=== PATIENT | female | born 1975 | race Caucasian/White ===

== ENCOUNTER 2018-01-27 10:17 | Inpatient (IN) | payer BC, OTHER ==
[~2018-01-27] VITALS: Ht 162.6 cm; Wt 64.4 kg
[2018-01-27] VITALS (43 sets, daily range): BP systolic 32–105; BP diastolic 22–72
[2018-01-27] MEDS ORDERED: PANTOPRAZOLE 40 MG 10ML VIAL IV STA (10:35)
[2018-01-27] MEDS ORDERED: SODIUM CHLORIDE 0.9% 1000ML 1,000 ML IV STA ×2 (10:35→11:38)
[2018-01-27 11:31] LABS: BASOPHILS % 0.5 % (0.0-1.0); HEMATOCRIT 40.2 % (34.2-44.1); HEMOGLOBIN 12.6 g/dL (12.0-16.0); LYMPHOCYTES # (AUTO) 1.1 (1.0-3.2); LYMPHOCYTES % 54.3 % (18.0-39.1); MEAN CORPUSCULAR HEMOGLOBIN 34.8 pg (28-32); MEAN CORPUSCULAR HGB CONC 31.3 g/dL (31-35); NEUTROPHILS # (AUTO) 0.9 (2.1-6.9); NEUTROPHILS % 43.7 % (38.7-80.0); PLATELET COUNT 193 x10e3/uL (140-360); RED BLOOD COUNT 3.62 x10e6/uL (3.6-5.1); RED CELL DISTRIBUTION WIDTH 16.5 % (11.7-14.4)
[2018-01-27 11:37] LABS: ABG HCO3 16 mmol/L (23-28); ABG PCO2 21 mmHg (41-51); ABG PH 7.48 (7.31-7.41); ABG PO2 128 mmHg (80-105)
[2018-01-27] MEDS ORDERED: CEFEPIME HCL 2 GM VIAL IV STA (11:38)
[2018-01-27 11:41] LABS: AMPHETAMINES SCREEN,URINE NEGATIVE (NEGATIVE); PHENCYCLIDINE SCREEN,URINE NEGATIVE (NEGATIVE)
[2018-01-27 11:42] LABS: BENZODIAZEPINES SCREEN,URINE NEGATIVE (NEGATIVE)
[2018-01-27 11:44] LABS: CLARITY,URINE HAZY (CLEAR); COLOR,URINE YELLOW (YELLOW); LEUKOCYTE ESTERASE ,URINE NEGATIVE (NEGATIVE); PREGNANCY TEST, URINE NEGATIVE (NEGATIVE)
[2018-01-27 11:45] LABS: BILIRUBIN,URINE NEGATIVE (NEGATIVE); KETONES,URINE NEGATIVE (NEGATIVE); NITRITE,URINE POSITIVE (NEGATIVE); PROTEIN,URINE DIPSTICK NEGATIVE (NEGATIVE); URINE UROBILINOGEN 1 mg/dL (0.2 - 1)
[2018-01-27] MEDS ORDERED: VANCOMYCIN 1GM/NS 250 ML 250 ML IV ONE (11:45)
[2018-01-27 11:46] LABS: RBC,URINE 0-5 /HPF (0-5)
[2018-01-27] MEDS ORDERED: MAXALT MLT10 MG PO (11:46)
[2018-01-27] MEDS ORDERED: OXYCODONE-ACET1 EAC3 PO (11:46)
[2018-01-27] MEDS ORDERED: CYANOCOBALAMIN (11:46)
[2018-01-27 11:47] LABS: BACTERIA,URINE MANY /HPF; EPITHELIAL CELLS,URINE FEW /LPF; MUCUS,URINE FEW (RARE)
[2018-01-27 11:53] LABS: ACETAMINOPHEN < 3 ug/mL (10-30); ALANINE AMINOTRANSFERASE 71 IU/L (0-55); ALBUMIN 1.4 g/dL (3.5-5.0); ALBUMIN/GLOBULIN RATIO 0.4 (0.8-2.0); ALKALINE PHOSPHATASE 159 IU/L (40-150); ANION GAP 33.3 mmol/L (8-16); BLOOD UREA NITROGEN 6 mg/dL (7-26); BUN/CREATININE RATIO 10 (6-25); CALCIUM 7.6 mg/dL (8.4-10.2); CARBON DIOXIDE 15 mmol/L (22-29); CHLORIDE 96 mmol/L (98-107); CREATINE KINASE 102 IU/L (29-168); CREATININE, SERUM 0.62 mg/dL (0.57-1.11); EST GLOMERULAR FILTRATION RATE > 60 ML/MIN (60-); GLUCOSE 93 mg/dL (74-118); MAGNESIUM 1.5 MG/DL (1.3-2.1); POTASSIUM 4.3 mmol/L (3.5-5.1); SALICYLATE < 5.0 mg/dL (0-30); SODIUM 140 mmol/L (136-145)
[2018-01-27 11:57] LABS: ANISOCYTOSIS SLIGHT; EOSINOPHILS % (MANUAL) 1 % (0-7); LYMPHOCYTES % (MANUAL) 50 % (19-48); MONOCYTES % (MANUAL) 11 % (3.4-9.0); NEUTROPHILS % (MANUAL) 35 % (40-74); PLATELET ESTIMATE ADEQUATE; PLATELET MORPHOLOGY COMMENT NORMAL
--- NOTE | 2018-01-27 12:03 | Diagnostic Imaging Report ---
Examination: CT BRAIN WITHOUT CONTRAST History:Fall. Confusion. Altered mental status. Comparison studies:None Technique: Axial images were obtained from the skull base to the vertex. Coronal and sagittal images reconstructed from the axial data. Dose modulation, iterative reconstruction, and/or weight based adjustment of the mA/kV was utilized to reduce the radiation dose to as low as reasonably achievable. Intravenous contrast: None Findings: Scalp: No abnormalities. Bones: No fractures, blastic or lytic lesions. Brain sulci: Appropriate for age. Ventricles: Normal in size and configuration. No hydrocephalus. Extra-axial space: No abnormalities. Parenchyma: No abnormal densities. No masses, hemorrhage, or acute or chronic cortical based vascular insults.. Sellar/suprasellar region: No abnormalities. Craniocervical junction: Patent foramen magnum. No Chiari one malformation. Incidental findings: None. Impression: No intracranial abnormalities. Signed by: Dr. Cher Corona M.D. on 01/27/2018 11:58 AM
--- NOTE | 2018-01-27 12:05 | Diagnostic Imaging Report ---
Examination: CT CERVICAL SPINE WITHOUT CONTRAST HISTORY:Fall. Neck injury. COMPARISON:The images are prior cervical spine MRI performed in 2010. TECHNIQUE: Multidetector helical axial images were obtained without contrast from the foramen magnum to T1. Coronal and sagittal reformatted images were done. Bone and soft tissue windows were evaluated. Dose modulation, iterative reconstruction, and/or weight based adjustment of the mA/kV was utilized to reduce the radiation dose to as low as reasonably achievable. FINDINGS: Alignment:Normal alignment and lordosis. Vertebrae: Normal height and density. No acute fracture, infection or neoplasm. Disc space heights: Normal height. Caliber of spinal canal: Developmentally normal. Posterior fossa and craniocervical junction: Foramen magnum patent. No Chiari 1 malformation. Soft tissues: No abnormality. Degenerative changes: No disc bulge/ herniation or foraminal or canal stenosis. Additional findings: An epidural catheter is identified in the posterior midline with distal tip at the C3-C4 level. IMPRESSION: 1. No acute abnormality. 2. An epidural catheter is identified in the posterior midline with distal tip at the C3-C4 level. Signed by: Dr. Cher Corona M.D. on 01/27/2018 12:01 PM
[2018-01-27 12:07] LABS: INR 1.37; PROTHROMBIN TIME 15.9 seconds (11.9-14.5)
[2018-01-27 12:08] LABS: PARTIAL THROMBOPLASTIN TIME 36.3 seconds (23.8-35.5)
--- NOTE | 2018-01-27 12:08 | Diagnostic Imaging Report ---
EXAMINATION: CHEST SINGLE (PORTABLE) INDICATION: \S\AMS, ? RIGHT BREAST MASS COMPARISON: None FINDINGS: AP view TUBES and LINES: None. LUNGS: Lungs are well inflated. Lungs are clear. There is no evidence of pneumonia or pulmonary edema. PLEURA: No pleural effusion or pneumothorax. HEART AND MEDIASTINUM: The cardiomediastinal silhouette is unremarkable. BONES AND SOFT TISSUES: Partially visualized spinal stimulator wires with one stimulator component at at T7 level and the second lead is partially visualized with the inferior component at C7 with the proximal tip not well-visualized but presumptively at C5-C6 level. No acute osseous lesion. Soft tissues are unremarkable. UPPER ABDOMEN: No free air under the diaphragm. IMPRESSION: No acute thoracic abnormality. Signed by: Dr. Martin Kelley M.D. on 01/27/2018 12:05 PM
--- NOTE | 2018-01-27 12:10 | Diagnostic Imaging Report ---
PELVIS AP 1-2 VIEWS - 1 views HISTORY: Pain. Fall. COMPARISON: None available. FINDINGS: Bones: No acute displaced fracture. Osseous alignment is within normal limits. Joints: Mild degenerative changes in the lower lumbar spine and bilateral SI joints. Soft tissues: The soft tissues appear unremarkable. Generator component of the spinal stimulator overlies the left side. IMPRESSION: No acute radiographic abnormality. Signed by: Dr. Martin Kelley M.D. on 01/27/2018 12:06 PM
[2018-01-27 12:13] LABS: THYROID STIMULATING HORMONE 1.905 uIU/mL (0.350-4.940)
[2018-01-27] MEDS ORDERED: ONDANSETRON HCL INJ 2 MG/ML VIAL IV PRN (13:00)
[2018-01-27] MEDS ORDERED: MORPHINE SULFATE INJ 4 MG/ML INJ IV PRN (13:00)
[2018-01-27] MEDS: CEFEPIME HCL 2 GM VIAL IV SCH ×2 (13:22→22:36)
[2018-01-27] MEDS ORDERED: SODIUM CHLORIDE 0.9% 1000ML 1,000 ML ONE ×2 (13:24→14:29)
[2018-01-27] MEDS ORDERED: SODIUM CHLORIDE 0.9% 1000ML 1,000 ML IV ONE (13:30)
[2018-01-27] MEDS ORDERED: ETOMIDATE 2 MG/ML 10 ML INJ IV STA (13:43)
[2018-01-27] MEDS ORDERED: SUCCINYLCHOLINE CHLORIDE 20 MG/ML 10ML VIAL IV STA (13:44)
[2018-01-27] MEDS ORDERED: ROCURONIUM BROMIDE 1 ML ONE (14:04)
[2018-01-27] MEDS ORDERED: ROCURONIUM BROMIDE 10 MG/ML 5ML VIAL IV ONE ×2 (14:05→14:30)
[2018-01-27] MEDS ORDERED: ACETAMINOPHEN 325 MG TAB PO PRN (14:15)
[2018-01-27] MEDS ORDERED: SENNOSIDES 8.6 MG TAB PO PRN (14:15)
[2018-01-27] MEDS: SODIUM CHLORIDE 0.9% 1000ML 1,000 ML IV SCH ×2 (14:33→19:15)
[2018-01-27 14:40] LABS: CHOLESTEROL 91 MD/DL (0-199); TRIGLYCERIDES 131 MG/DL (0-149)
[2018-01-27 14:42] LABS: HDL CHOLESTEROL < 5 MG/DL (40-60); LDL CHOLESTEROL 60 MG/DL (60-130)
[2018-01-27] MEDS ORDERED: PROPOFOL IV EMULSION 10 MG/ML 50 ML VIAL IV PRN (14:45)
[2018-01-27] MEDS ORDERED: PROPOFOL IV EMULSION 10MG/ML 100 ML IV PRN (15:00)
--- NOTE | 2018-01-27 15:39 | Diagnostic Imaging Report ---
EXAMINATION: CHEST SINGLE (PORTABLE) INDICATION: \S\s/p intubation and right SC central attempted/unsuccessful COMPARISON: Chest x-ray 01/27/2018. FINDINGS: AP view TUBES and LINES: * Endotracheal tube tip is 4.4 cm above the kelli. * Nasogastric tube courses below the diaphragm. However, the side-port is 4.9 cm above the diaphragm. * Partially visualized 2 spinal stimulator wires one ending in the mid thorax and one in the cervical spine. LUNGS: Lungs are well inflated. Perihilar atelectasis. There is no evidence of pneumonia or pulmonary edema. PLEURA: No pleural effusion or pneumothorax. HEART AND MEDIASTINUM: The cardiomediastinal silhouette is unremarkable. BONES AND SOFT TISSUES: No acute osseous lesion. Soft tissues are unremarkable. UPPER ABDOMEN: No free air under the diaphragm. IMPRESSION: 1. Endotracheal tube is in good position.. 2. NG tube needs to be advanced by at least another 5 cm. 3. No pneumothorax. Signed by: Dr. Martin Kelley M.D. on 01/27/2018 3:36 PM
--- NOTE | 2018-01-27 15:56 | Diagnostic Imaging Report ---
EXAM: CT Abdomen and Pelvis WITH contrast INDICATION: \S\sepsis, h/o gastric bypass COMPARISON: None. TECHNIQUE: Abdomen and pelvis were scanned utilizing a multidetector helical scanner from the lung base to the pubic symphysis after administration of IV contrast. Coronal and sagittal reformations were obtained. Routine protocol was performed. Scan was performed when during portal venous phase. IV CONTRAST: 100 mL of Isovue 370 ORAL CONTRAST: Water COMPLICATIONS: None RADIATION DOSE: Total DLP: 312.97 mGy*cm Estimated effective dose: (DLP x 0.015 x size factor) mSv CTDIvol has been reviewed. It is below the limits set by the Radiation Protocol Committee (RPC). FINDINGS: LINES and TUBES: Tip of the NG tube terminates at the gastric pouch LOWER THORAX: Mild dependent groundglass opacities in both lower lobes, likely atelectasis. There is however a more well-defined 1.4 x 1.5 cm pleural base consolidation with peripheral groundglass opacity in the lateral right lower lobe (series 2 image 10). HEPATOBILIARY: Severe diffuse hepatic steatosis. Wedge-shaped focal fatty sparing in the right hepatic lobe. 2.1 cm mild area of enhancement in the right hepatic dome, also likely focal fatty sparing. No focal hepatic lesions. No biliary ductal dilation. GALLBLADDER: There are cholecystectomy clips. SPLEEN: No splenomegaly. PANCREAS: No focal masses or ductal dilatation. ADRENALS: No adrenal nodules KIDNEYS/URETERS: Kidneys enhance symmetrically. No hydronephrosis. No cystic or solid mass lesions. No stones. GI TRACT: Diffuse small bowel and colonic wall thickening and mucosal enhancement consistent with diffuse enterocolitis. Majority of the inflammatory changes are centered in the colon. Postoperative changes of gastric bypass. Appendix is not visualized. PELVIC ORGANS/BLADDER: Unremarkable. LYMPH NODES: No lymphadenopathy. VESSELS: Unremarkable. PERITONEUM / RETROPERITONEUM: Moderate ascites. The ascites in the deep pelvis is mildly hyperdense measuring 23 Hounsfield units. BONES: Unremarkable. SOFT TISSUES: Severe anasarca. Left sided spinal stimulator device with one lead entering at T12-L1 and the other lead entering at T11-T12. IMPRESSION: 1. Findings of diffuse enterocolitis, predominantly involving the colon. 2. Diffuse anasarca with moderate ascites. The ascitic fluid is mildly hyperdense. 3. Severe diffuse hepatic steatosis with focal area of fatty sparing. 4. Postop changes of gastric bypass surgery with the tip of the NG tube in the gastric pouch. 5. Dependent atelectasis. There is however a 1.5 cm more focal opacity in the right lower lobe. This may represent infection, atelectasis, or a resolving pulmonary infarct. Signed by: Dr. Martin Kelley M.D. on 01/27/2018 3:52 PM
[2018-01-27] MEDS: LACTULOSE SYRUP 20 GM/30 ML UDC PO SCH ×2 (16:05→18:00)
[2018-01-27] MEDS ORDERED: FAMOTIDINE 20 MG TAB PO SCH (16:30)
--- NOTE | 2018-01-27 17:03 | Consultation ---
DATE OF CONSULTATION: January 27, 2018 PULMONARY CRITICAL CARE CONSULTATION CONSULTING PHYSICIAN: Dr. Keith Barrera. CHIEF COMPLAINT: Patient was brought into the emergency room by the with altered mental status. HPI: Ms. Ramsey is a 42-year-old female. Currently, she is moaning, breathing 30 times a minute, and Dr. Nielson is about to intubate the patient. Patient came in with altered mental status. She has a history of gastric bypass surgery per the chart and is severely emaciated with weight loss. She is around 80 to 100 pounds. She is severely malnourished with generalized anasarca. Her ammonia level in the emergency room was 194 with a lactic acid of 42.2. She has been started on lactulose. She is unable to give me any history because of her mental status. REVIEW OF SYSTEMS: Unable to elicit a detailed review of systems because of the patient's mental status. PAST MEDICAL HISTORY: History of gastric bypass surgery, malnutrition, generalized weakness and debility, anemia. FAMILY AND SOCIAL HISTORY: She lives with her . She does not smoke, does not drink. PHYSICAL EXAMINATION VITAL SIGNS: Temperature 99, pulse of 105, blood pressure 99/66. GENERAL APPEARANCE: She appears much older than the stated age of 42. She is cachectic, weak. SKIN: She has a redness and peau d'orange appearance on the right breast and probably a mass in the right breast as well. HEENT: Head atraumatic, normocephalic. She is opening her eyes on sternal rub, but not responding much. NECK: Supple. CHEST: Clear to auscultation. No wheezing. No crackles. HEART: S1, S2 audible. Tachycardic. ABDOMEN: Soft. EXTREMITIES: Bilateral pedal edema up until the upper thighs. NEUROLOGIC: She is moaning, not responding to any questions, opening her eyes on sternal rub. DIAGNOSTIC AND LABORATORY DATA: Chest x-ray, I have reviewed the images, not showing any evidence of pneumonia. She has spinal stimulator wires with one stimulator component at T7 level. Brain CT was done in the emergency room, which is showing no intracranial abnormalities. Ammonia 194. Lactic acid of 42.2. ASSESSMENT/PLAN: Ms. Ramsey is a 42-year-old female, presented with altered mental status and encephalopathy. CURRENT PROBLEMS 1. Severe malnutrition, generalized anasarca, history of gastric bypass surgery. 2. Hepatic encephalopathy, lactulose has been started. 3. Severe encephalopathy and patient appears to be tachycardic and tachypneic, unable to protect the airway. Her blood gas, which was done on the room air, shows a pH of 7.48, pCO2 of 21, and pO2 of 128, which signifies metabolic acidosis with respiratory compensation with mild respiratory alkalosis as well. Once the ventilator support is started, we will review the settings. 4. Anemia with high MCV, possibility of folate and iron deficiency due to gastric bypass surgery. Stool for occult blood is positive. Recommend GI evaluation as well. 5. Abnormal liver function test and high ammonia level with no clear-cut source of sepsis. I will do a CT scan of the abdomen and pelvis once the patient is intubated and stabilized. 6. Generalized anasarca with malnutrition. Patient will benefit from dietary evaluation. 7. Broad-spectrum antibiotic coverage will be started with vancomycin and cefepime, one dose has been given in the emergency room. We will follow the blood cultures. At this point, the source of the sepsis is not very clear. Critical care time spent 50 minutes. Job#: [id number] LPA
[2018-01-27] MEDS ORDERED: FENTANYL CITRATE INJ 2,000 MCG in SODIUM CHLORIDE 0.9% 250ML 210 ML IV PRN (17:30)
[2018-01-27] MEDS ORDERED: NOREPINEPHRINE 8 MG/D5W 250 ML 250 ML ONE (17:34)
[2018-01-27 17:38] LABS: ABG HCO3 14 mmol/L (23-28); ABG PCO2 28 mmHg (41-51); ABG PH 7.32 (7.31-7.41); ABG PO2 461 mmHg (80-105)
[2018-01-27] MEDS ORDERED: DURAGESIC1 EAC1 (17:40)
[2018-01-27] MEDS ORDERED: LYRICA75 MG (17:40)
[2018-01-27] MEDS ORDERED: SODIUM CHLORIDE 0.9% 50ML 50 ML ONE (18:03)
[2018-01-27] MEDS ORDERED: IOPAMIDOL 370 MG/ML 200 ML INFUS..BTL INJ ONE (18:04)
--- NOTE | 2018-01-27 18:36 | Diagnostic Imaging Report ---
EXAMINATION: CHEST XRAY LINE PLACEMENT INDICATION: \S\LINE PLACEMENT COMPARISON: Chest x-ray 01/27/2018 at 1512 FINDINGS: AP view TUBES and LINES: The right PICC line with tip at low SVC. Endotracheal tube and nasogastric tubes are in good position. Spinal stimulator wires remain unchanged. LUNGS: Lungs are well inflated. Lungs are clear. There is no evidence of pneumonia or pulmonary edema. PLEURA: No pleural effusion or pneumothorax. HEART AND MEDIASTINUM: The cardiomediastinal silhouette is unremarkable. BONES AND SOFT TISSUES: No acute osseous lesion. Soft tissues are unremarkable. UPPER ABDOMEN: No free air under the diaphragm. IMPRESSION: New right PICC line with tip in low SVC. Signed by: Dr. Martin Kelley M.D. on 01/27/2018 6:32 PM
[2018-01-27] MEDS ORDERED: VASOPRESSIN 100 UNIT in DEXTROSE 5% 100ML 100 ML IV PRN (19:00)
[2018-01-27 19:38] LABS: CREATINE KINASE MB 2.8 ng/mL (0-5.0)
[2018-01-27 19:51] LABS: FOLATE 6.5 ng/mL (7.0-15.4)
--- NOTE | 2018-01-27 21:01 | History and Physical ---
PRIMARY CARE PHYSICIAN: Dr. Mei. CHIEF COMPLAINT: Confusion and reduce responsiveness. HISTORY OF PRESENT ILLNESS: All the history has been obtained from at bedside. 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 She lost about 50 pounds in a month. Now, patient developing lethargy and confusion and difficulty in ambulating, brought to the hospital here, found to be in poor condition, severely malnourished. NG tube was placed due to hyperammonemia, requiring lactulose, but patient seemed to decompensate and required intubation. Now, she is in the ICU for management. PAST MEDICAL HISTORY: Cigarette use; rapid weight loss in September following hernia repair, about 50-pound weight loss; degenerative joint disease; chronic pain disorder; chronic diarrhea; hepatomegaly. PAST SURGICAL HISTORY: Hernia repair, gastric bypass 12 years ago, spinal cord stimulator. ALLERGIES: PER ELECTRONIC MEDICAL RECORD. FAMILY/SOCIAL HISTORY: Patient is . She smokes 1 pack of cigarettes per day. Alcohol intake is unknown. MEDICATIONS: Per electronic medical record. REVIEW OF SYSTEMS: Unobtainable. PHYSICAL EXAMINATION VITAL SIGNS: Have been reviewed. GENERAL APPEARANCE: A cachectic-appearing woman with bitemporal wasting. HEENT: Anicteric. She has ET tube in place. CARDIOVASCULAR: Normal S1 and S2. LUNGS: She has bilateral breath sounds. ABDOMEN: Soft. She has midline surgical scar. EXTREMITIES: She has trace to 1+ leg edema. SKIN: She has erythematous rash on the right breast. No induration. No fluctuance. No skin breakdown. NEUROLOGICAL: Not interactive. PSYCHIATRIC: Unable to assess. LABS: Reviewed. MEDICATIONS: Reviewed. ASSESSMENT: This is a 42-year-old woman 1. Sepsis. 2. Leukopenia. 3. Acute respiratory failure. 4. Dehydration. 5. Metabolic acidosis. 6. Acute versus chronic transaminitis. 7. Hyperammonemia. 8. Urinary tract infection. 9. Foreign body in the spinal cervical region. 10. Underweight state. 11. Protein-calorie malnutrition with cachexia. 12. Physical deconditioning. 13. Acute hepatic encephalopathy. 14. Right breast rash. PLAN 1. Continue vent support. 2. Pulmonary consultation. 3. GI consultation. 4. We will need nutritional support. We will consult sawmilling operator. 5. Antibiotics for signs of sepsis and urinary tract infection. 6. Blood culture and urine culture. 7. Acute hepatitis panel. 8. Lactulose for hyperammonemia. Recheck ammonia level in the morning. 9. Unclear etiology of the right breast rash. We will consult infectious disease to assist in management. 10. Use SCD. 11. Monitor closely in the ICU. Critical care time more than 35 minutes. Job#: [id number] LPA
[2018-01-27] MEDS ORDERED: HYDROCORTISONE SOD SUCCINATE 100 MG VIAL IV SCH (22:00)
[2018-01-27] MEDS ORDERED: ALBUMIN 25% 25GM 0.25 GM/ML BTL IV ONE (22:00)
[2018-01-27] MEDS ORDERED: SODIUM CHLORIDE 0.9% 1000ML 1,000 ML IV PRN (22:00)
[2018-01-27] MEDS ORDERED: HYDROCORTISONE SOD SUCCINATE 100 MG VIAL ONE (22:02)
[2018-01-27] MEDS ORDERED: ALBUMIN 25% 12.5GM 100 ML IV ONE (22:03)
[2018-01-27] MEDS: HYDROCORTISONE SOD SUCCINATE 100 MG VIAL IV SCH (22:13)
[2018-01-27] MEDS ORDERED: PHENYLEPHRINE IV SCH (22:14)
[2018-01-27] MEDS ORDERED: DEXTROSE 5% IV SCH (22:14)
[2018-01-27] MEDS ORDERED: PHENYLEPHRINE HCL 1% 10 MG/ML VIAL ONE (22:21)
[2018-01-27] MEDS ORDERED: DEXTROSE 5% 250ML 250 ML IV ONE (22:21)
[2018-01-27] MEDS: PHENYLEPHRINE 10MG/ML VIAL 40 MG in DEXTROSE 5% 250ML 246 ML IV SCH (22:47)
[2018-01-27] MEDS: NOREPINEPHRINE 8 MG/D5W 250 ML 250 ML IV PRN (22:55)
[2018-01-27] MEDS ORDERED: SODIUM BICARBONATE 8.4% INJ 50 ML SYR IV STA (23:43)
[2018-01-27] MEDS ORDERED: DEXTROSE 5% 1,000 ML IV ONE (23:45)
[2018-01-27] MEDS ORDERED: SODIUM BICARBONATE 8.4% ONE (23:45)
[2018-01-27] MEDS ORDERED: SODIUM BICARBONATE 8.4% SYRING 150 ML in DEXTROSE 5% 1,000 ML IV SCH (23:45)
[2018-01-27 23:48] LABS: ABG HCO3 11 mmol/L (23-28); ABG PCO2 24 mmHg (41-51); ABG PH 7.27 (7.31-7.41); ABG PO2 222 mmHg (80-105)
[2018-01-27] MEDS ORDERED: VANCOMYCIN 1GM/NS 250 ML 250 ML IV SCH (23:55)
[2018-01-28] VITALS (19 sets, daily range): BP systolic 54–118; BP diastolic 31–89
[2018-01-28] MEDS ORDERED: ZOFRAN ODT4 MG PO (01:35)
[2018-01-28] MEDS ORDERED: MARINOL2.5 MG PO (01:35)
[2018-01-28] MEDS: NOREPINEPHRINE 8 MG/D5W 250 ML 250 ML IV PRN (03:40)
[2018-01-28] MEDS: LACTULOSE SYRUP 20 GM/30 ML UDC PO SCH ×2 (04:33)
[2018-01-28] MEDS ORDERED: PHENYLEPHRINE HCL 1% 10 MG/ML VIAL ONE ×2 (04:45→04:48)
[2018-01-28] MEDS: PHENYLEPHRINE 10MG/ML VIAL 40 MG in DEXTROSE 5% 250ML 246 ML IV SCH (04:50)
[2018-01-28] MEDS ORDERED: DEXTROSE 5% 250ML 250 ML IV ONE (04:50)
[2018-01-28 04:54] LABS: BASOPHILS % 0.3 % (0.0-1.0); EOSINOPHILS % 0.8 % (0.0-6.0); HEMATOCRIT 26.8 % (34.2-44.1); LYMPHOCYTES # (AUTO) 0.7 (1.0-3.2); MEAN CORPUSCULAR HEMOGLOBIN 34.8 pg (28-32); MEAN CORPUSCULAR HGB CONC 29.9 g/dL (31-35); MEAN CORPUSCULAR VOLUME 116.5 fL (81-99); MONOCYTES # (AUTO) 0.1 (0.2-0.8); MONOCYTES % 2.5 % (4.4-11.3); NEUTROPHILS # (AUTO) 2.8 (2.1-6.9); PLATELET COUNT 115 x10e3/uL (140-360); RED CELL DISTRIBUTION WIDTH 16.7 % (11.7-14.4)
[2018-01-28 05:22] LABS: CREATINE KINASE MB 3.5 ng/mL (0-5.0)
[2018-01-28] MEDS: HYDROCORTISONE SOD SUCCINATE 100 MG VIAL IV SCH (05:29)
[2018-01-28] MEDS: CEFEPIME HCL 2 GM VIAL IV SCH (05:29)
[2018-01-28 05:37] LABS: ALANINE AMINOTRANSFERASE 38 IU/L (0-55); ALBUMIN 1.1 g/dL (3.5-5.0); ALBUMIN/GLOBULIN RATIO 0.6 (0.8-2.0); ALKALINE PHOSPHATASE 67 IU/L (40-150); BLOOD UREA NITROGEN 6 mg/dL (7-26); BUN/CREATININE RATIO 9 (6-25); CARBON DIOXIDE 12 mmol/L (22-29); CHLORIDE 98 mmol/L (98-107); CHOLESTEROL 49 MD/DL (0-199); CREATININE, SERUM 0.66 mg/dL (0.57-1.11); EST GLOMERULAR FILTRATION RATE > 60 ML/MIN (60-); GLUCOSE 146 mg/dL (74-118); MAGNESIUM 1.5 MG/DL (1.3-2.1); SODIUM 135 mmol/L (136-145); TRIGLYCERIDES 94 MG/DL (0-149)
[2018-01-28 05:44] LABS: CALCIUM 5.9 mg/dL (8.4-10.2)
[2018-01-28 05:45] LABS: HDL CHOLESTEROL < 5 MG/DL (40-60); LDL CHOLESTEROL 25 MG/DL (60-130)
[2018-01-28] MEDS ORDERED: EPINEPHRINE HCL INJ 1 MG/ML AMP ONE (08:30)
[2018-01-28] MEDS ORDERED: ETOMIDATE 40 MG/ 20ML VIAL IV ONE (08:35)
[2018-01-28] MEDS ORDERED: SUCCINYLCHOLINE CHLORIDE 20 MG/ML 10ML VIAL ONE (08:35)
[2018-01-28] MEDS ORDERED: MULTIVITAMINS/MINERALS TAB PO SCH (09:00)
[2018-01-28] MEDS ORDERED: THIAMINE HCL INJ 100 MG in SODIUM CHLORIDE 0.9% 50ML 50 ML IV SCH (09:00)
[2018-01-28] MEDS ORDERED: THIAMINE HCL INJ 100 MG/ML 2ML VIAL IV SCH (09:00)
[2018-01-28 09:23] LABS: BAND NEUTROPHILS % (MANUAL) 47 %; LYMPHOCYTES % (MANUAL) 25 % (19-48); MONOCYTES % (MANUAL) 11 % (3.4-9.0); NEUTROPHILS % (MANUAL) 17 % (40-74); PLATELET ESTIMATE ADEQUATE; PLATELET MORPHOLOGY COMMENT NORMAL; RBC MORPHOLOGY COMMENT NORMAL
--- OUTSIDE RECORDS SUMMARY | 2018-02-15 08:15 | XMS REPORT | Clinical Summary ---
Author Author [facility] Address Unknown Phone Unavailable Care Team Providers Care Manager Of Business Operations Name Role Phone PCP Unavailable Allergies No Known Allergies Current Medications Prescription Sig. Disp. Refills Start End Date Status Date fentaNYL (DURAGESIC) 25 Place 1 patch onto the Active mcg/hr patch skin every third day. pregabalin (LYRICA) 100 Take 100 mg by mouth 3 Active MG capsule (three) times daily. tiZANidine (ZANAFLEX) 4 Take 4 mg by mouth every Active MG tablet 6 (six) hours as needed. oxyCODONE-acetaminophen Take 1 tablet by mouth Active (PERCOCET) 10-325 mg per every 4 (four) hours as tablet needed for Pain. triamterene-hydroCHLOROth Take 1 capsule by mouth Active iazide (DYAZIDE) 37.5-25 every morning. mg per capsule rizatriptan (MAXALT) 10 Take 10 mg by mouth once Active MG tablet as needed for Headaches Do NOT exceed thirty (30) mg in 24 hours. . diclofenac potassium Take 1 packet by mouth Active (CAMBIA) 50 mg PwPk daily as needed (migraine). doxepin (SINEQUAN) 25 MG Take 25 mg by mouth every Active capsule night as needed (insomnia). cyanocobalamin (VITAMIN Inject 1,000 mcg Active B-12) 1,000 mcg/mL intramuscularly as injection directed 2x a month . multivitamin per tablet Take 1 tablet by mouth Active daily. Active Problems Problem Noted Date Lumbar radiculopathy 06/14/2017 Encounters Date Type Specialty Care Team Description 06/14/2017 Hospital Ramón Paulino MD Encounter 06/14/2017 Procedure Pass 06/14/2017 Surgery Ramón Paulino MD INSERTION,SPINAL CORD NEUROSTIMULATOR 06/13/2017 Anesthesia Roxane Lieberman MD Event after 01/26/2017 Social History Tobacco Use Types Packs/Day Years Used Date Current Every Day Smoker 0.5 Smokeless Tobacco: Never Used Tobacco Cessation: Ready to Quit: Yes Alcohol Use Drinks/Week oz/Week Comments No Sex Assigned at Date Recorded Not on file Last Filed Vital Signs Vital Sign Reading Time Taken Blood Pressure 94/53 06/14/2017 1:20 PM [employer] Pulse 61 06/14/2017 1:20 PM [employer] Temperature 36.4 C (97.6 F) 06/14/2017 1:20 PM [employer] Respiratory Rate 8 06/14/2017 1:20 PM [employer] Oxygen Saturation 100% 06/14/2017 1:20 PM [employer] Inhaled Oxygen - - Concentration Weight - - Height - - Body Mass Index - - Plan of Treatment Not on file Implants Implanted Type Area Cut Filer Device Expiration Model / Identifier Date Serial / Lot Lwire Set Paddle Octrode 60 - Pain N/A: Back ST TESS 09/07/2018 3186 / [id number] Mgmt/Stimu MED:NEUROMODULA [id number] / Implanted: Qty: 1 on 06/14/2017 by Ramón Lynch MD Lwire Set Paddle Octrode 60 - Pain N/A: Back ST TESS 04/03/2019 3186 / [id number] Mgmt/Stimu MED:NEUROMODULA [id number] / Implanted: Qty: 1 on 06/14/2017 by Ramón Lynch MD Stim Neuro [employer] 5 Elite - Pain N/A: Back ST TESS 01/23/2019 3660 / [id number] Mgmt/Stimu MED:NEUROMODULA [id number] / Implanted: Qty: 1 on 06/14/2017 by Ramón Lynch MD Francis Lauren [place] 1192 - [id number] Spine ADV 05/26/2019 1192 / Implanted: Qty: 2 on 06/14/2017 by OBDULIA / Ramón Paulino MD SYS [id number] Procedures Procedure Name Priority Date/Time Associated Diagnosis Comments INSERTION,SPINAL CORD 06/14/2017 Chronic nonmalignant pain NEUROSTIMULATOR 11:15 AM [employer] Case Notes PERMANENT LUMBAR SCS KHOURY PADMINI VILLALTA , SENTRY after 01/26/2017 Results * FL Supervisor Fleshing in OR 30 minute increments (06/14/2017 11:26 AM) Specimen Performing Laboratory GE RIS Narrative FLUOROSCOPIC UNIT UTILIZED.NO INTERPRETATION REQUESTED. Procedure Note Interface, External Ris In - 06/14/2017 1:53 PM [employer] FLUOROSCOPIC UNIT UTILIZED. NO INTERPRETATION REQUESTED. * Screen, urine (06/14/2017 10:28 AM) Component Value Ref Range Preg Test, Ur Negative Specimen Performing Laboratory Urine [facility] [address] [place] [address] after 01/26/2017
--- NOTE | 2018-02-26 15:12 | Discharge Summary ---
SUMMARY CAUSE OF : 1. Sepsis with Enterobacter and Klebsiella urinary tract infections as well as Klebsiella bacteremia. 2. Acute respiratory failure. For further details of hospitalization, please refer to my H\T\P. NAZIA CLARKE MD Job#: [id number] [facility]
--- OUTSIDE RECORDS SUMMARY | 2018-02-27 03:02 | XMS REPORT | CCD ---
Author Author Auto Generated Organization [facility] Outpatient Imaging [facility] Address Unknown Phone Unavailable Care Team Providers Care Taper Printed Circuit Layout Name Role Phone Stanford Mei CP Allergies, Adverse Reactions, Alerts Substance Reaction Status NKDA Active NKFA Active Problem List Condition Effective Dates Status Fibromyalgia Resolved Obesity Resolved
--- OUTSIDE RECORDS SUMMARY | 2018-02-27 03:02 | XMS REPORT | Summary of Care ---
Author Author [facility] Outpatient Imaging [facility] Outpatient Imaging [facility] Address Unknown Phone Unavailable Encounter HQ Encntr_alias(FIN) [id number] Date(s): 04/21/17 - 04/21/17 [facility] Outpatient Imaging [facility] [address] [place], [place] [address]- [place] Discharge Disposition: Home or Self Care Attending Physician: Stanford Mei MD Vital Signs No data available for this section Problem List Condition Effective Dates Status Health Status Informant Fibromyalgia(Confirm Resolved ed) Obesity(Confirmed) Resolved Allergies, Adverse Reactions, Alerts Substance Reaction Severity Status NKFA Active NKDA Active Medications No data available for this section Results No data available for this section Immunizations No data available for this section Procedures Procedure Date Related Diagnosis Body Site Tonsillectomy 1978 Cholecystectomy Epidural steroid injection Gastric bypass operation Social History Social History Type Response Assessment and Plan No data available for this section
--- OUTSIDE RECORDS SUMMARY | 2018-02-27 03:02 | XMS REPORT | Summary of Care ---
Author Author [facility] Outpatient Imaging [facility] Outpatient Imaging [facility] Address Unknown Phone Unavailable Encounter HQ Encntr_alias(FIN) [id number] Date(s): 08/03/16 - 08/03/16 [facility] Outpatient Imaging [facility] [address] [place], [place] [address]- Discharge Disposition: Home or Self Care Attending Physician: [id number] -DANYELLE ABDULLAHI Vital Signs No data available for this section Problem List Condition Effective Dates Status Health Status Informant Fibromyalgia(Confirm Resolved ed) Obesity(Confirmed) Resolved Allergies, Adverse Reactions, Alerts Substance Reaction Severity Status NKDA Active NKFA Active Medications No data available for this section Results No data available for this section Immunizations No data available for this section Procedures Procedure Date Related Diagnosis Body Site Tonsillectomy 1978 Cholecystectomy Epidural steroid injection Gastric bypass operation Social History Social History Type Response Assessment and Plan No data available for this section
--- OUTSIDE RECORDS SUMMARY | 2018-02-27 03:02 | XMS REPORT | CCD ---
Author Author Auto Generated Organization [facility] Outpatient Imaging [facility] Address Unknown Phone Unavailable Care Team Providers Care Form Block Maker Name Role Phone Stanford Mei CP Allergies, Adverse Reactions, Alerts Substance Reaction Status NKDA Active NKFA Active Problem List Condition Effective Dates Status Fibromyalgia Resolved Obesity Resolved
--- OUTSIDE RECORDS SUMMARY | 2018-02-27 03:02 | XMS REPORT | CCD ---
Author Author Auto Generated Organization [facility] Outpatient Imaging [facility] Address Unknown Phone Unavailable Care Team Providers Care Floor Inspector Name Role Phone Stanford Mei CP Allergies, Adverse Reactions, Alerts Substance Reaction Status NKDA Active NKFA Active Problem List Condition Effective Dates Status Fibromyalgia Resolved Obesity Resolved
--- OUTSIDE RECORDS SUMMARY | 2018-02-27 03:02 | XMS REPORT | CCD ---
Author Author Auto Generated Organization [facility] Outpatient Imaging [facility] Address Unknown Phone Unavailable Care Team Providers Care Press Operator Helper Name Role Phone Stanford Mei CP Allergies, Adverse Reactions, Alerts Substance Reaction Status NKDA Active NKFA Active Problem List Condition Effective Dates Status Fibromyalgia Resolved Obesity Resolved
--- OUTSIDE RECORDS SUMMARY | 2018-02-27 03:02 | XMS REPORT | CCD ---
Author Author Auto Generated Organization [facility] Outpatient Imaging [facility] Address Unknown Phone Unavailable Care Team Providers Care Chipping Machine Operator Name Role Phone Stanford Mei CP Allergies, Adverse Reactions, Alerts Substance Reaction Status NKDA Active NKFA Active Problem List Condition Effective Dates Status Fibromyalgia Resolved Obesity Resolved
--- OUTSIDE RECORDS SUMMARY | 2018-02-27 03:02 | XMS REPORT | CCD ---
Author Author Auto Generated Organization [facility] Address Unknown Phone Unavailable Care Team Providers Care Powder Loader Name Role Phone Frankie De La Fuente RP Allergies, Adverse Reactions, Alerts Substance Reaction Status NKDA Active NKFA Active Problem List Condition Effective Dates Status Fibromyalgia Resolved Obesity Resolved Medications Medication Instructions Start Date End Date Status [place] 7.5/325 oral 15 mL, Route: PO, Drug Form: TAB, 06/20/2012 06/20/2012 Completed tablet Dosing Weight 92.727, kg, ONCE, Start date: 06/20/12 13:57:00, Stop date: 06/20/12 13:57:00 Zofran 4 mg, Route: IV, ONCE, Dosing 06/20/2012 06/20/2012 Completed Weight 92.727, kg, PRN Nausea, Start date: 06/20/12 11:56:00 fentanyl 25 microgram, 0.5 mL, Route: IVP, 06/20/2012 06/20/2012 Completed Drug form: INJ, Q5Min, Dosing Weight 92.727, kg, Start date: 06/20/12 11:50:00, Duration: 2 doses or times, Stop date: 06/20/12 11:55:00 fentanyl 25 microgram, 0.5 mL, Route: IVP, 06/20/2012 06/20/2012 Pending Drug form: INJ, Q5Min, Dosing Complete Weight 92.727, kg, Start date: 06/20/12 12:15:00, Duration: 2 doses or times, Stop date: 06/20/12 12:20:00 Vital Signs Most recent to oldest [Reference Range]: 1 2 3 Height 167.64 cm (06/18/2012 14:34:00) Systolic Blood Pressure [90-140 mmHg] 113 mmHg (06/20/2012 13:00:00) 107 mmHg (06/20/2012 12:00:00) 103 mmHg (06/20/2012 11:45:00) Diastolic Blood Pressure [60-90 mmHg] 52 mmHg *LOW* (06/20/2012 13:00:00) 56 mmHg *LOW* (06/20/2012 12:00:00) 51 mmHg *LOW* (06/20/2012 11:45:00) Respiratory Rate [14-20 BRMIN] 16 BRMIN (06/20/2012 13:00:00) 11 BRMIN *LOW* (06/20/2012 12:00:00) 12 BRMIN *LOW* (06/20/2012 11:45:00) Peripheral Pulse Rate [60-100 bpm] 78 bpm (06/20/2012 07:22:00) Weight 92.727 kg (06/18/2012 14:34:00) Procedures Procedures Date Related Diagnosis Cholecystectomy Epidural steroid injection Gastric bypass operation Tonsillectomy 1979
--- OUTSIDE RECORDS SUMMARY | 2018-02-27 03:02 | XMS REPORT | Summary of Care ---
Author Author [facility] Organization [facility] Address Unknown Phone Unavailable Encounter HEIDI Burton(KELLIE) [phone] Date(s): 05/04/17 - 05/04/17 [facility] [address] [place] [address]- Discharge Disposition: Home or Self Care Attending Physician: Austen Ford MD Vital Signs No data available for this section Problem List Condition Effective Dates Status Health Status Informant Fibromyalgia(Confirm Resolved ed) Obesity(Confirmed) Resolved Allergies, Adverse Reactions, Alerts Substance Reaction Severity Status NKFA Active NKDA Active Medications No data available for this section Results ELECTROLYTES Most recent to 1 oldest [Reference Range]: Sodium Lvl [135-145 141 mEq/L mEq/L] (05/04/17 11:40 AM) Potassium Lvl 5.0 mEq/L [3.5-5.1 mEq/L] (05/04/17 11:40 AM) Chloride Lvl [95-109 105 mEq/L mEq/L] (05/04/17 11:40 AM) CO2 [24-32 mEq/L] 30 mEq/L (05/04/17 11:40 AM) AGAP [10.0-20.0 11.0 mEq/L mEq/L] (05/04/17 11:40 AM) CHEM PANEL Most recent to 1 oldest [Reference Range]: Creatinine Lvl 0.50 mg/dL [0.50-1.40 mg/dL] (05/04/17 11:40 AM) eGFR 119 mL/min/1.73m2 1 *NA* (05/04/17 11:40 AM) BUN [7-22 mg/dL] 10 mg/dL (05/04/17 11:40 AM) B/C Ratio [6-25] 20 (05/04/17 11:40 AM) Glucose Lvl [70-99 89 mg/dL mg/dL] (05/04/17 11:40 AM) Total Protein 6.3 g/dL [6.4-8.4 g/dL] *LOW* (05/04/17 11:40 AM) Albumin Lvl [3.5-5.0 3.3 g/dL g/dL] *LOW* (05/04/17 11:40 AM) Globulin [2.7-4.2 3.0 g/dL g/dL] (05/04/17 11:40 AM) A/G Ratio [0.7-1.6] 1.1 (05/04/17 11:40 AM) Calcium Lvl 9.1 mg/dL [8.5-10.5 mg/dL] (05/04/17 11:40 AM) ALT [0-65 unit/L] 21 unit/L (05/04/17 11:40 AM) AST [0-37 unit/L] 21 unit/L (05/04/17 11:40 AM) Alk Phos [39-136 59 unit/L unit/L] (05/04/17 11:40 AM) Bili Total [0.2-1.3 0.2 mg/dL mg/dL] (05/04/17 11:40 AM) 1Result Comment: The eGFR is calculated using the CKD-EPI formula. In most young, healthy individuals the eGFR will be >90 mL/min/1.73m2. The eGFR declines with age. An eGFR of 60-89 may be normal in some populations, particularly the elderly, for whom the CKD-EPI formula has not been extensively validated. Use of the eGFR is not recommended in the following populations: Individuals with unstable creatinine concentrations, including patients and those with serious co-morbid conditions. Patients with extremes in muscle mass or diet. The data above are obtained from the National Kidney Disease Education Program ( NKDEP) which additionally recommends that when the eGFR is used in patients with extremes of body mass index for purposes of drug dosing, the eGFR should be mul tiplied by the estimated BMI. HEMATOLOGY Most recent to 1 oldest [Reference Range]: WBC [3.7-10.4 K/CMM] 4.0 K/CMM (05/04/17 11:40 AM) RBC [4.20-5.40 3.48 M/CMM M/CMM] *LOW* (05/04/17 11:40 AM) Hgb [12.0-16.0 g/dL] 9.9 g/dL *LOW* (05/04/17 11:40 AM) Hct [36.0-48.0 %] 30.5 % *LOW* (05/04/17 11:40 AM) MCV [80.0-98.0 fL] 87.6 fL (05/04/17 11:40 AM) MCH [27.0-31.0 pg] 28.4 pg (05/04/17 11:40 AM) MCHC [32.0-36.0 32.4 g/dL g/dL] (05/04/17 11:40 AM) RDW [11.5-14.5 %] 17.7 % *HI* (05/04/17 11:40 AM) Platelet [133-450 227 K/CMM K/CMM] (05/04/17 11:40 AM) MPV [7.4-10.4 fL] 7.0 fL *LOW* (05/04/17 11:40 AM) Segs [45.0-75.0 %] 41.1 % *LOW* (05/04/17 11:40 AM) Lymphocytes 44.3 % [20.0-40.0 %] *HI* (05/04/17 11:40 AM) Monocytes [2.0-12.0 12.5 % %] *HI* (05/04/17 11:40 AM) Eosinophils [0.0-4.0 1.4 % %] (05/04/17 11:40 AM) Basophils [0.0-1.0 0.7 % %] (05/04/17 11:40 AM) Segs-Bands # 1.6 K/CMM [1.5-8.1 K/CMM] (05/04/17 11:40 AM) Lymphocytes # 1.8 K/CMM [1.0-5.5 K/CMM] (05/04/17 11:40 AM) Monocytes # [0.0-0.8 0.5 K/CMM K/CMM] (05/04/17 11:40 AM) Eosinophils # 0.1 K/CMM [0.0-0.5 K/CMM] (05/04/17 11:40 AM) Immunizations No data available for this section Procedures Procedure Date Related Diagnosis Body Site Tonsillectomy 1979 Cholecystectomy Epidural steroid injection Gastric bypass operation Social History Social History Type Response Assessment and Plan No data available for this section
--- OUTSIDE RECORDS SUMMARY | 2018-02-27 03:02 | XMS REPORT | CCD ---
Author Author Auto Generated Organization [facility] Outpatient Imaging [facility] Address Unknown Phone Unavailable Care Team Providers Care External Grinder Tool Name Role Phone Stanford Mei CP Allergies, Adverse Reactions, Alerts Substance Reaction Status NKDA Active NKFA Active Problem List Condition Effective Dates Status Fibromyalgia Resolved Obesity Resolved
--- OUTSIDE RECORDS SUMMARY | 2018-02-27 03:03 | XMS REPORT | Clinical Summary ---
Author Author [facility] Address Unknown Phone Unavailable Care Team Providers Care Mixer Runner Name Role Phone PCP Unavailable Allergies No [...] Taken Blood Pressure 94/53 06/14/2017 1:20 PM COMMUNICATION COORDINATOR Pulse 61 06/14/2017 1:20 PM COMMUNICATION COORDINATOR Temperature 36.4 C (97.6 F) 06/14/2017 1:20 PM COMMUNICATION COORDINATOR Respiratory Rate 8 06/14/2017 1:20 PM COMMUNICATION COORDINATOR Oxygen Saturation 100% 06/14/2017 1:20 PM COMMUNICATION COORDINATOR Inhaled Oxygen - - Concentration Weight - - Height - - Body Mass Index - - Plan of Treatment Not on file Implants Implanted Type Area Body Joiner Device Expiration Model / Identifier Date Serial / Lot Lwire Set Paddle Octrode 60 - Pain N/A: Back ST TESS 09/07/2018 3186 / [id number] Mgmt/Stimu MED:NEUROMODULA [id number] / Implanted: Qty: 1 on 06/14/2017 by Ramón Lynch MD Lwire Set Paddle Octrode 60 - Pain N/A: Back ST TESS 04/03/2019 3186 / [id number] Mgmt/Stimu MED:NEUROMODULA [id number] / Implanted: Qty: 1 on 06/14/2017 by Ramón Lynch MD Stim Neuro Proclaim 5 Elite - Pain N/A: Back ST TESS 01/23/2019 3660 / [id number] Mgmt/Stimu MED:NEUROMODULA [id number] / Implanted: Qty: 1 on 06/14/2017 by Ramón Lynch MD Francis Lauren [place] 1192 - [id number] Spine ADV 05/26/2019 1192 / Implanted: Qty: 2 on 06/14/2017 by OBDULIA / Ramón Paulino MD SYS [id number] Procedures Procedure Name Priority Date/Time Associated Diagnosis Comments INSERTION,SPINAL CORD 06/14/2017 Chronic nonmalignant pain NEUROSTIMULATOR 11:15 AM COMMUNICATION COORDINATOR Case Notes PERMANENT LUMBAR SCS KHOURY PADMINI VILLALTA , [place] after 01/26/2017 Results * FL Ordnance Handler in OR 30 minute increments (06/14/2017 11:26 AM) Specimen Performing Laboratory GE RIS Narrative FLUOROSCOPIC UNIT UTILIZED.NO INTERPRETATION REQUESTED. Procedure Note Interface, External Ris In - 06/14/2017 1:53 PM COMMUNICATION COORDINATOR FLUOROSCOPIC UNIT UTILIZED. NO INTERPRETATION REQUESTED. * Screen, urine (06/14/2017 10:28 AM) Component Value Ref Range Preg Test, Ur Negative Specimen Performing Laboratory Urine [facility] [address] [place] [address] after 01/26/2017
--- OUTSIDE RECORDS SUMMARY | 2018-02-27 03:03 | XMS REPORT ---
Author Author [facility] Address Unknown Phone Unavailable Care Team Providers Care Paper Counter Name Role Phone NAZIA CLARKE Unavailable Unavailable GANESH MALIK Unavailable Unavailable Payers Payer Name Policy Type Policy Number Effective Date Expiration Date Problems This patient has no known problems. Allergies, Adverse Reactions, Alerts Allergy Name Allergy Type Status Severity Reaction(s) Onset Date Inactive Date Treating Clinician Comments No Known Contrast Allergies DA Active U 2006-07-25 00:00:00 No Known Drug Allergies DA Active U 2006-07-25 00:00:00 No Known Food Allergies DA Active U 2006-07-25 00:00:00 No Known Other Allergies DA Active U 2006-07-25 00:00:00 Medications This patient has no known medications. Results Test Description Test Time Test Comments Text Results Atomic Results Result Comments CHEST XRAY LINE PLACEMENT 2018-01-27 18:31:00 [place] [address] Patient Name: YOGI MEREDITH MR #: [id number] : 1975 Age/Sex: 42/F Req #: [id number] Adm Physician: NAZIA CLARKE MD Ordered by: NAZIA CLARKE MD Report #: [id number] Location: ICU Room/Bed: ICU 1941 Procedure: DX/CHEST XRAY LINE PLACEMENT Exam Date: 01/27/18 Exam Time: 1805 REPORT STATUS: Signed EXAMINATION: CHEST XRAY LINE PLACEMENT INDICATION: S LINE PLACEMENT COMPARISON: Chest x-ray 01/27/2018 at 1512 FINDINGS: AP view TUBES and LINES: The right PICC line with tip at low SVC. Endotracheal tube and nasogastric tubes are in good position. Spinal stimulator wires remain unchanged. LUNGS: Lungs are well inflated. Lungs are clear. There is no evidence of pneumonia or pulmonary edema. PLEURA: No pleural effusion or pneumothorax. HEART AND MEDIASTINUM: The cardiomediastinal silhouette is unremarkable. BONES AND SOFT TISSUES: No acute osseous lesion. Soft tissues are unremarkable. UPPER ABDOMEN: No free air under the diaphragm. IMPRESSION: New right PICC line with tip in low SVC. Signed by: Dr. Jonathan Kelley M.D. on 01/27/2018 6:32 PM Dictated By: SARAH KELLEY MD 31 Transcribed By: DINESH on 01/27/181831 COPY TO: NAZIA CLARKE MD CT ABDOMEN/PELVIS W 2018-01-27 15:39:00 [place] [address] Patient Name: YOGI MEREDITH MR #: [id number] : 1975 Age/Sex: 42/F Req #: [id number] Adm Physician: NAZIA CLARKE MD Ordered by: LUIZ MORELAND MD Report #: [id number] Location: [facility] Room/Bed: [place] [address] Procedure: CT/CT ABDOMEN/PELVIS W Exam Date: Exam Time: REPORT STATUS: Signed EXAM: CT Abdomen and Pelvis WITH contrast INDICATION: S sepsis, h/o gastric bypass COMPARISON: None. TECHNIQUE: Abdomen and pelvis were scanned utilizing a multidetector helical scanner from the lung base to the pubic symphysis after administration of IV contrast. Coronal and sagittal reformations were obtained. Routine protocol was performed. Scan was performed when during portal venous phase. IV CONTRAST: 100 mL of Isovue 370 ORAL CONTRAST: Water COMPLICATIONS: None RADIATION DOSE: Total DLP: 312.97 mGy*cm Estimated effective dose: (DLP x 0.015 x size factor) mSv CTDIvol has been reviewed. It is below the limits set by the Radiation Protocol Committee (RPC). FINDINGS: LINES and TUBES: Tip of the NG tube terminates at the gastric pouch LOWER THORAX: Mild dependent groundglass opacities in both lower lobes, likely atelectasis. There is however a more well-defined 1.4 x 1.5 cm pleural base consolidation with peripheral groundglass opacity in the lateral right lower lobe (series 2 image 10). HEPATOBILIARY: Severe diffuse hepatic steatosis. Wedge-shaped focal fatty sparing in the right hepatic lobe. 2.1 cm mild area of enhancement in the right hepatic dome, also likely focal fatty sparing. No focal hepatic lesions. No biliary ductal dilation. GALLBLADDER: There are cholecystectomy clips. SPLEEN: No splenomegaly. PANCREAS: No focal masses or ductal dilatation. ADRENALS: No adrenal nodules KIDNEYS/URETERS: Kidneys enhance symmetrically. No hydronephrosis. No cystic or solid mass lesions. No stones. GI TRACT: Diffuse small bowel and colonic wall thickening and mucosal enhancement consistent with diffuse enterocolitis. Majority of the inflammatory changes are centered in the colon. Postoperative changes of gastric bypass. Appendix is not visualized. PELVIC ORGANS/BLADDER: Unremarkable. LYMPH NODES: No lymphadenopathy. VESSELS: Unremarkable. PERITONEUM / RETROPERITONEUM: Moderate ascites. The ascites in the deep pelvis is mildly hyperdense measuring 23 Hounsfield units. BONES: Unremarkable. SOFT TISSUES: Severe anasarca. Left sided spinal stimulator device with one lead entering at T12-L1 and the other lead entering at T11- T12. IMPRESSION: 1. Findings of diffuse enterocolitis, predominantly involving the colon. 2. Diffuse anasarca with moderate ascites. The ascitic fluid is mildly hyperdense. 3. Severe diffuse hepatic steatosis with focal area of fatty sparing. 4. Postop changes of gastric bypass surgery with the tip of the NG tube in the gastric pouch. 5. Dependent atelectasis. There is however a 1.5 cm more focal opacity in the right lower lobe. This may represent infection, atelectasis, or a resolving pulmonary infarct. Signed by: Dr. Sarah Kelley M.D. on 01/27/2018 3:52 PM Dictated By: SARAH KELLEY MD 51 Transcribed By: DINESH on 01/27/181551 COPY TO: LUIZ MORELAND MD CHEST SINGLE (PORTABLE) 2018-01-27 15:33:00 [place] [address] Patient Name: YOGI MEREDITH MR #: [id number] : 1975 Age/Sex: 42/F Req #: [id number] Adm Physician: NAZIA CLARKE MD Ordered by: LUIZ MORELAND MD Report #: [id number] Location: [facility] Room/Bed: [place] [address] Procedure: [id number] DX/CHEST SINGLE (PORTABLE) Exam Date: 01/27/18 Exam Time: 1525 REPORT STATUS: Signed EXAMINATION: CHEST SINGLE (PORTABLE) INDICATION: S s/p intubation and right SC central attempted/unsuccessful COMPARISON: Chest x-ray 01/27/2018. FINDINGS: AP view TUBES and LINES: * Endotracheal tube tip is 4.4 cm above the kelli. * Nasogastric tube courses below the diaphragm. However, the side-port is 4.9 cm above the diaphragm. * Partially visualized 2 spinal stimulator wires one ending in the mid thorax and one in the cervical spine. LUNGS: Lungs are well inflated. Perihilar atelectasis. There is no evidence of pneumonia or pulmonary edema. PLEURA: No pleural effusion or pneumothorax. HEART AND MEDIASTINUM: The cardiomediastinal silhouette is unremarkable. BONES AND SOFT TISSUES: No acute osseous lesion. Soft t issues are unremarkable. UPPER ABDOMEN: No free air under the diaphragm. IMPRESSION: 1. Endotracheal tube is in good position.. 2. NG tube needs to be advanced by at least another 5 cm. 3. No pneumothorax. Signed by: Dr. Sarah Kelley M.D. on 01/27/2018 3:36 PM Dictated By: SARAH KELLEY MD 35 Transcribed By: DINESH on 01/27/181535 COPY TO: LUIZ MORELAND MD PELVIS AP 1-2 VIEWS 2018-01-27 12:05:00 [place] [address] Patient Name: YOGI MEREDITH MR #: [id number] : 1975 Age/Sex: 42/F Req #: [id number] Adm Physician: Ordered by: LUIZ MORELAND MD Report #: [id number] Location: ER Room/Bed: Procedure: [id number] DX/PELVIS AP 1-2 VIEWS Exam Date: 01/27/18 Exam Time: 1150 REPORT STATUS: Signed PELVIS AP 1-2 VIEWS - 1 views HISTORY: Pain. Fall. COMPARISON: None available. FINDINGS: Bones: No acute displaced fracture. Osseous alignment is within normal limits. Joints: Mild degenerative changes in the lower lumbar spine and bilateral SI joints. Soft tissues: The soft tissues appear unremarkable. Generator component of the spinal stimulator overlies the left side. IMPRESSION: No acute radiographic abnormality. Signed by: Dr. Sarah Kelley M.D. on 01/27/2018 12:06 PM Dictated By: SARAH KELLEY MD 05 Transcribed By: DINESH on 01/27/181205 COPY TO: LUIZ MORELAND MD CHEST SINGLE (PORTABLE) 2018-01-27 12:03:00 [place] [address] Patient Name: YOGI MEREDITH MR #: [id number] : 1975 Age/Sex: 42/F Req #: [id number] Adm Physician: Ordered by: LUIZ MORELAND MD Report #: [id number] Location: ER Room/Bed: Procedure: [id number] DX/CHEST SINGLE (PORTABLE) Exam Date: 01/27/18 Exam Time: 1150 REPORT STATUS: Signed EXAMINATION: CHEST SINGLE (PORTABLE) INDICATION: S AMS, ? RIGHT BREAST MASS COMPARISON: None FINDINGS: AP view TUBES and LINES: None. LUNGS: Lungs are well inflated. Lungs are clear. There is no evidence of pneumonia or pulmonary edema. PLEURA: No pleural effusion or pneumothorax. HEART AND MEDIASTINUM: The cardiomediastinal silhouette is unremarkable. BONES AND SOFT TISSUES: Partially visualized spinal stimulator wires with one stimulator component at at T7 level and the second lead is partially visualized with the inferior component at C7 with the proximal tip not well-visualized but presumptively at C5-C6 level. No acute osseous lesion. Soft tissues are unremarkable. UPPER ABDOMEN: No free air under the diaphragm. IMPRESSION: No acute thoracic abnormality. Signed by: Dr. Sarah Kelley M.D. on 01/27/2018 12:05 PM Dictated By: SARAH KELLEY MD 1205 Transcribed By: DINESH on 01/27/18 1205 COPY TO: LUIZ MORELAND MD CT CERVICAL SPINE WO 2018-01-27 11:58:00 [place] [address] Patient Name: YOGI MEREDITH MR #: [id number] : 1975 Age/Sex: 42/F Req #: [id number] Adm Physician: Ordered by: LUIZ MORELAND MD Report #: [id number] Location: ER Room/Bed: Procedure: [id number] CT/CT CERVICAL SPINE WO Exam Date: 01/27/18 Exam Time: 1130 REPORT STATUS: Signed Examination: CT CERVICAL SPINE WITHOUT CONTRAST HISTORY:Fall. Neck injury. COMPARISON:The images are prior cervical spine MRI performed in 2010. TECHNIQUE: Multidetector helical axial images were obtained without contrast from the foramen magnum to T1. Coronal and sagittal reformatted images were done. Bone and soft tissue windows were evaluated. Dose modulation, iterative reconstruction, and/or weight based adjustment of the mA/kV was utilized to reduce the radiation dose to as low as reasonably achievable. FINDINGS: Alignment:Normal alignment and lordosis. Vertebrae: Normal height and density. No acute fracture, infection or neoplasm. Disc space heights: Normal height. Caliber of spinal canal: Developmentally normal. Posterior fossa and craniocervical junction: Foramen magnum patent. No Chiari 1 malformation. Soft tissues: No abnormality. Degenerative changes: No disc bulge/ herniation or foraminal or canal stenosis. Additional findings: An epidural catheter is jackie ntified in the posterior midline with distal tip at the C3-C4 level. IMPRESSION: 1. No acute abnormality. 2. An epidural catheter is identified in the posterior midline with distal tip at the C3-C4 level. Signed by: Dr. Cher Corona M.D. on 01/27/2018 12:01 PM Dictated By: CHER FORMAN MD 1201 Transcribed By: DINESH on 01/27/18 1201 COPY TO: LUIZ MORELAND MD CT BRAIN WO 2018-01-27 11:57:00 [facility] [address] [place] [address] Patient Name: YOGI MEREDITH MR #: [id number] : 1975 Age/Sex: 42/F Req #: [id number] Adm Physician: Ordered by: LUIZ MORELAND MD Report #: [id number] Location: ER Room/Bed: Procedure: [id number] CT/CT BRAIN WO Exam Date: 01/27/18 Exam Time: 1130 REPORT STATUS: Signed Examination: CT BRAIN WITHOUT CONTRAST History:Fall. Confusion. Altered mental status. Comparison studies:None Technique: Axial images were obtained from the skull base to the vertex. Coronal and sagittal images reconstructed from the axial data. Dose modulation, iterative reconstruction, and/or weight based adjustment of the mA/kV was utilized to reduce the radiation dose to as low as reasonably achievable. Intravenous contrast: None Findings: Scalp: No abnormalities. Bones: No fractures, blastic or lytic lesions. Brain sulci: Appropriate for age. Ventricles: Normal in size and configuration. No hydrocephalus. Extra-axial space: No abnormalities. Parenchyma: No abnormal densities. No masses, hemorrhage, or acute or chronic cortical based vascular insults.. Sellar/suprasellar region: No abnormalities. Craniocervical junction: Patent foramen magnum. No Chiari one malformation. Incidental findings: None. Impression: No intracranial abnormalities. Signed by: Dr. Cher Corona M.D. on 01/27/2018 11:58 AM Dictated By: CHER FORMAN MD 1158 Transcribed By: DINESH on 01/27/18 1158 COPY TO: LUIZ MORELAND MD [place], [employer] IN OR/30 MINUTE INCREMENTS 2017-06-14 13:53:00 Reason for exam:->C arm Required FLUOROSCOPIC UNIT UTILIZED. NO INTERPRETATION REQUESTED. EN, URINE 2017-06-14 10:30:00 TEST URINE (BEAKER) (test loyd=411) Negative
--- OUTSIDE RECORDS SUMMARY | 2018-02-27 03:03 | XMS REPORT | Summary of Care ---
Author Author [facility] Organization [facility] Address Unknown Phone Unavailable Encounter HEIDI Burton(FIN) [id number] Date(s): 11/07/17 - 11/07/17 [facility] [address] [place] [address]- Encounter Diagnosis Hypoalbuminemia (Discharge Diagnosis) - 11/07/17 Acute UTI (Discharge Diagnosis) - 11/07/17 Peripheral edema (Discharge Diagnosis) - 11/07/17 Discharge Disposition: Home or Self Care Attending Physician: Wilfredo Maynard MD Vital Signs 1 2 3 Most recent to oldest [Reference Range]: 167.64 cm (11/07/17 11:47 AM) Height 98.1 DegF (11/07/17 11:47 AM) Temperature Oral [96.4-99.1 DegF] 102/47 mmHg (11/07/17 4:58 PM) 97/60 mmHg (11/07/17 4:00 PM) 95/49 mmHg (11/07/17 3:00 PM) Blood Pressure [90-140/60-90 mmHg] 29 BRMIN *HI* (11/07/17 4:58 PM) 40 BRMIN *HI* (11/07/17 4:00 PM) 65 BRMIN *HI* (11/07/17 3:00 PM) Respiratory Rate [14-20 BRMIN] 73 bpm (11/07/17 2:22 PM) 88 bpm (11/07/17 1:30 PM) 93 bpm (11/07/17 11:47 AM) Peripheral Pulse Rate [60-100 bpm] 63.136 kg (11/07/17 11:47 AM) Weight 22.47 m2 (11/07/17 11:47 AM) Body Mass Index Problem List Condition Effective Dates Status Health Status Informant Fibromyalgia(Confirm Active ed) Degenerative disc Active disease(Confirmed) Obesity(Confirmed) Resolved Allergies, Adverse Reactions, Alerts Substance Reaction Severity Status NKFA Active NKDA Active Medications Keflex 500 mg oral capsule 500 mg=1 cap, PO, BID, X 7 day, # 14 cap, 0 Refill(s) Start Date: 11/07/17 Stop Date: 11/14/17 Status: Ordered NS (Bolus) IV 500 mL, 500 ml/hr, Infuse Over: 1 hr, Route: IV, 500, Drug form: INJ, ONCE, Prio rity: STAT, Dosing Weight 63.136 kg, Start date: 11/07/17 15:36:00 CDT, Stop cathy e: 11/07/17 15:36:00 CDT Start Date: 11/07/17 Stop Date: 11/07/17 Status: Completed Rocephin + sterile water 10 mL 1 gm, Route: IV, ONCE, Dosing Weight 63.136, kg, Priority: STAT, Start date: 15:36:00 CDT, Stop date: 11/07/17 15:36:00 CDT, ABX Indication: Genital Tr act Infection Notes: (Same As: Rocephin).Use with 100 mL NS and infuse over 30 min MEDICA TION WASTE Product Size: 1000 mgProduct Wasted: ___ mg Start Date: 11/07/17 Stop Date: 11/07/17 Status: Completed Saline Flush 0.9% 10 mL, Route: IVP, Drug Form: INJ, Dosing Weight 63.136, kg, PRN, PRN Line Flush , Start date: 11/07/17 12:39:00 CDT, Duration: 1 day, Stop date: 11/08/17 12:38: 00 CDT Notes: (Same as: BD Posiflush) Start Date: 11/07/17 Stop Date: 11/07/17 Status: Discontinued Zofran 4 mg, 1 tab, Route: PO, Drug form: TABDIS, ONCE, Dosing Weight 63.136, kg, Prior ity: STAT, Start date: 11/07/17 15:36:00 CDT, Stop date: 11/07/17 15:36:00 CDT Notes: (Same as: Zofran ODT) Start Date: 11/07/17 Stop Date: 11/07/17 Status: Completed Zofran ODT 4 mg oral tablet, disintegrating 4 mg=1 tab, PO, BID, PRN Nausea and Vomiting, Dissolve tab under tongue, # 10 ta b, 0 Refill(s) Start Date: 11/07/17 Stop Date: 11/12/17 Status: Ordered Results ELECTROLYTES Most recent to 1 oldest [Reference Range]: Sodium Lvl [135-145 138 mEq/L mEq/L] (11/07/17 1:24 PM) Potassium Lvl 4.4 mEq/L [3.5-5.1 mEq/L] (11/07/17 1:24 PM) Chloride Lvl [95-109 97 mEq/L mEq/L] (11/07/17 1:24 PM) CO2 [24-32 mEq/L] 26 mEq/L (11/07/17 1:24 PM) AGAP [10.0-20.0 19.4 mEq/L mEq/L] (11/07/17 1:24 PM) CHEM PANEL Most recent to 1 oldest [Reference Range]: Creatinine Lvl 0.61 mg/dL [0.50-1.40 mg/dL] (11/07/17 1:24 PM) eGFR 112 mL/min/1.73m2 1 *NA* (11/07/17 1:24 PM) BUN [7-22 mg/dL] 11 mg/dL (11/07/17 1:24 PM) B/C Ratio [6-25] 18 (11/07/17 1:24 PM) Glucose Lvl [70-99 81 mg/dL mg/dL] (11/07/17 1:24 PM) Total Protein 5.9 g/dL [6.4-8.4 g/dL] *LOW* (11/07/17 1:24 PM) Albumin Lvl [3.5-5.0 1.8 g/dL g/dL] *LOW* (11/07/17 1:24 PM) Globulin [2.7-4.2 4.1 g/dL g/dL] (11/07/17 1:24 PM) A/G Ratio [0.7-1.6] 0.4 *LOW* (11/07/17 1:24 PM) Calcium Lvl 7.8 mg/dL [8.5-10.5 mg/dL] *LOW* (11/07/17 1:24 PM) ALT [0-65 unit/L] 71 unit/L *HI* (11/07/17 1:24 PM) AST [0-37 unit/L] 49 unit/L *HI* (11/07/17 1:24 PM) Alk Phos [39-136 204 unit/L unit/L] *HI* (11/07/17 1:24 PM) Bili Total [0.2-1.3 0.5 mg/dL mg/dL] (11/07/17 1:24 PM) Lipase Lvl [73-393 30 unit/L unit/L] *LOW* (11/07/17 1:24 PM) 1Result Comment: The eGFR is calculated using [...] be mul tiplied by the estimated BMI. CARDIAC ENZYMES Most recent to 1 oldest [Reference Range]: Total CK [12-191 74 unit/L unit/L] (11/07/17 1:24 PM) CK MB [0.5-3.6 3.0 ng/mL ng/mL] (11/07/17 1:24 PM) CK MB Index 4.1 [0.0-2.5] *HI* (11/07/17 1:24 PM) Troponin-I <0.02 ng/mL [0.00-0.40 ng/mL] (11/07/17 1:24 PM) BNP [<=100 pg/mL] 87 pg/mL (11/07/17 1:24 PM) URINE CHEM Most recent to 1 oldest [Reference Range]: U Preg [Negative] Negative (11/07/17 1:24 PM) URINE AND STOOL Most recent to 1 oldest [Reference Range]: UA Turbidity [Clear] Slight *ABN* (11/07/17 1:24 PM) UA Color [Yellow] Yellow *NA* (11/07/17 1:24 PM) UA pH [5.0-8.0] 5.0 (11/07/17 1:24 PM) UA Spec Grav 1.024 [<=1.030] (11/07/17 1:24 PM) UA Glucose [Negative Negative mg/dL mg/dL] *NA* (11/07/17 1:24 PM) UA Blood [Negative] Negative (11/07/17 1:24 PM) UA Ketones [Negative Trace mg/dL mg/dL] *ABN* (11/07/17 1:24 PM) UA Protein [Negative Negative mg/dL mg/dL] (11/07/17 1:24 PM) UA Urobilinogen 2.0 mg/dL [0.1-1.0 mg/dL] *HI* (11/07/17 1:24 PM) UA Bili [Negative] Negative *NA* (11/07/17 1:24 PM) UA Leuk Est Moderate [Negative] *ABN* (11/07/17 1:24 PM) UA Nitrite Positive [Negative] *ABN* (11/07/17 1:24 PM) UA WBC [0-5 /HPF] 86 /HPF *HI* (11/07/17 1:24 PM) UA RBC [0-2 /HPF] 1 /HPF (11/07/17 1:24 PM) UA Bacteria [None Occasional /HPF Seen /HPF] *NA* (11/07/17 1:24 PM) UA Sq Epi [Few /LPF] Occasional /LPF *NA* (11/07/17 1:24 PM) UA Hyal Cast [0-2 8 /LPF /LPF] *HI* (11/07/17 1:24 PM) UA Amorph Shirley [None Occasional /HPF Seen /HPF] *NA* (11/07/17 1:24 PM) HEMATOLOGY Most recent to 1 oldest [Reference Range]: WBC [3.7-10.4 K/CMM] 6.8 K/CMM (11/07/17 1:24 PM) RBC [4.20-5.40 4.08 M/CMM M/CMM] *LOW* (11/07/17 1:24 PM) Hgb [12.0-16.0 g/dL] 11.9 g/dL *LOW* (11/07/17 1:24 PM) Hct [36.0-48.0 %] 36.8 % (11/07/17 1:24 PM) MCV [80.0-98.0 fL] 90.3 fL (11/07/17 1:24 PM) MCH [27.0-31.0 pg] 29.1 pg (11/07/17 1:24 PM) MCHC [32.0-36.0 32.2 g/dL g/dL] (11/07/17 1:24 PM) RDW [11.5-14.5 %] 24.3 % *HI* (11/07/17 1:24 PM) MPV [7.4-10.4 fL] 7.9 fL (11/07/17 1:24 PM) Platelet [133-450 470 K/CMM K/CMM] *HI* (11/07/17 1:24 PM) Segs [45.0-75.0 %] 46.9 % (11/07/17 1:24 PM) Lymphocytes 46.8 % [20.0-40.0 %] *HI* (11/07/17 1:24 PM) Monocytes [2.0-12.0 5.6 % %] (11/07/17 1:24 PM) Eosinophils [0.0-4.0 0.2 % %] (11/07/17 1:24 PM) Basophils [0.0-1.0 0.5 % %] (11/07/17 1:24 PM) Segs-Bands # 3.2 K/CMM [1.5-8.1 K/CMM] (11/07/17 1:24 PM) Lymphocytes # 3.2 K/CMM [1.0-5.5 K/CMM] (11/07/17 1:24 PM) Monocytes # [0.0-0.8 0.4 K/CMM K/CMM] (11/07/17 1:24 PM) Anisocyte [None 1+ Seen] *ABN* (11/07/17 1:24 PM) Plt Morph Normal (11/07/17 1:24 PM) PT [12.0-14.7 12.0 seconds seconds] (11/07/17 1:24 PM) INR [0.85-1.17] 0.89 (11/07/17 1:24 PM) PTT [22.9-35.8 33.8 seconds seconds] (11/07/17 1:24 PM) Microbiology Reports TEST: Culture: Urine STATUS: Order in Progress BODY SITE: SOURCE: Urine, Clean Catch COLLECTED DATE/TIME: 11/07/17 1:24 PM PRELIMINARY REPORT >100,000 CFU/mL Gram Negative Rods Identification And Sensitivity Pending Immunizations No data available for this section Procedures Procedure Date Related Diagnosis Body Site Status Tonsillectomy 1978 Completed Cholecystectomy Completed Epidural steroid injection Completed Gastric bypass operation Completed Social History Social History Type Response Smoking Status Never smoker; Ready to change: Yes; Concerns about tobacco use in household: Yes; Exposure to Tobacco Smoke None; Cigarette Smoking Last 365 Days No; Reg Smoking Cessation Counseling Yes entered on: 11/07/17 Assessment and Plan No data available for this section
--- OUTSIDE RECORDS SUMMARY | 2018-02-27 03:03 | XMS REPORT | Summary of Care ---
Author Author [facility] Organization [facility] Address Unknown Phone Unavailable Encounter HEIDI Burton(KELLIE) [id number] Date(s): 08/29/17 - 09/04/17 [facility] [address] [place] [address]- Discharge Disposition: Home or Self Care Attending Physician: Cullen Lee MD Admitting Physician: Cullen Lee MD Vital Signs 1 2 3 Most recent to oldest [Reference Range]: 177.8 cm (08/29/17 9:02 PM) Height 84.091 kg (09/03/17 3:32 AM) 82.273 kg (09/02/17 4:26 AM) 80.455 kg (08/31/17 4:58 AM) Current Weight 98.6 DegF (09/04/17 6:50 PM) 98.4 DegF (09/04/17 4:00 PM) 98.8 DegF (09/04/17 11:29 AM) Temperature Oral [96.4-99.1 DegF] 115/81 mmHg (09/04/17 6:50 PM) 97/65 mmHg (09/04/17 4:00 PM) 111/75 mmHg (09/04/17 11:29 AM) Blood Pressure [90-140/60-90 mmHg] 18 BRMIN (09/04/17 6:50 PM) 18 BRMIN (09/04/17 4:00 PM) 18 BRMIN (09/04/17 11:29 AM) Respiratory Rate [14-20 BRMIN] 77 bpm (09/04/17 6:50 PM) 71 bpm (09/04/17 4:00 PM) 80 bpm (09/04/17 11:29 AM) Peripheral Pulse Rate [60-100 bpm] 80.591 kg (09/01/17 4:03 AM) 70.455 kg (08/29/17 9:02 PM) Weight 22.29 m2 (08/29/17 9:02 PM) Body Mass Index Problem List Condition Effective Dates Status Health Status Informant Fibromyalgia(Confirm Active ed) Degenerative disc Active disease(Confirmed) Obesity(Confirmed) Resolved Allergies, Adverse Reactions, Alerts Substance Reaction Severity Status NKFA Active NKDA Active Medications acetaminophen 650 mg, 2 tab, Route: PO, Drug form: TAB, Q6H, Dosing Weight 80.591, kg, PRN Doroteo n 1-3/Temp > 100.4 F, Start date: 09/03/17 2:48:00 CDT, Duration: 30 day, Stop date: 10/03/17 2:47:00 CDT Notes: Do not exceed 4 gm/day. (Same as: Tylenol) Start Date: 09/03/17 Stop Date: 09/04/17 Status: Discontinued acetaminophen-oxycodone 325 mg-10 mg oral tablet 1 tab, PO, Q6H, PRN for pain, 0 Refill(s) Start Date: 08/30/17 Stop Date: 09/06/17 Status: Ordered ANES fentaNYL 25 microgram, Route: IVP, Q5Min, Dosing Weight 70.455, kg, PRN Pain Score 4-6, P riority: Routine, Start date: 08/30/17 7:41:00 CDT, Duration: 4 doses or times, Stop date: Limited # of times Start Date: 08/30/17 Stop Date: 08/30/17 Status: Completed ANES flumazenil 0.2 mg, 2 mL, Route: IVP, Drug form: INJ, PRN, Dosing Weight 70.455, kg, PRN Elias zodiazepine Reversal, Initial dose, Start date: 08/30/17 7:41:00 CDT, Duration: 12 hr, Stop date: 08/30/17 19:40:00 CDT Notes: (Same as: Romazicon) Start Date: 08/30/17 Stop Date: 08/30/17 Status: Discontinued ANES hydrALAZINE 10 mg, 0.5 mL, Route: IVP, Drug form: INJ, Q20Min, Dosing Weight 70.455, kg, PRN Elevated BP, Start date: 08/30/17 7:41:00 CDT, Duration: 2 doses or times, Stop date: 08/30/17 18:00:00 CDT Notes: (Same as: Apresoline)Push over 5 minutes Start Date: 08/30/17 Stop Date: 08/30/17 Status: Discontinued ANES labetalol 5 mg, 1 mL, Route: IVP, Drug form: INJ, Q5Min, Dosing Weight 70.455, kg, PRN Yaneli vated BP, Start date: 08/30/17 7:41:00 CDT, Duration: 5 doses or times, Stop cathy e: 08/30/17 18:00:00 CDT Notes: (Same as: Normodyne, Trandate)Push over 2 minutes Give bolus over 2-3 mi nutes. Start Date: 08/30/17 Stop Date: 08/30/17 Status: Discontinued ANES morphine Sulfate 2 mg, 1 mL, Route: IVP, Drug form: SOLN, Q5Min, Dosing Weight 70.455, kg, PRN Pa in Score 4-6, Start date: 08/30/17 7:41:00 CDT, Duration: 5 doses or times, Stop date: 08/30/17 18:00:00 CDT Start Date: 08/30/17 Stop Date: 08/30/17 Status: Discontinued ANES morphine Sulfate 4 mg, Route: IVP, Q5Min, Dosing Weight 70.455, kg, PRN Pain Score 7-10, Start da te: 08/30/17 7:41:00 CDT, Duration: 3 doses or times, Stop date: Limited # of ti mes Start Date: 08/30/17 Stop Date: 08/30/17 Status: Completed ANES naloxone 0.4 mg, 1 mL, Route: IVP, Drug form: INJ, Q2MIN, Dosing Weight 70.455, kg, PRN N arcotic Reversal, Start date: 08/30/17 7:41:00 CDT, Duration: 8 doses or times, Stop date: 08/30/17 18:00:00 CDT Notes: Same as Narcan Start Date: 08/30/17 Stop Date: 08/30/17 Status: Discontinued ANES ondansetron 4 mg, 2 mL, Route: IVP, Drug form: INJ, ONCE, Dosing Weight 70.455, kg, PRN Naus ea & Vomiting, Start date: 08/30/17 7:41:00 CDT Notes: (Same as: Vince) MEDICATION WASTE Product Size: 4 mgProduct Was aly: ___ mg Start Date: 08/30/17 Stop Date: 08/30/17 Status: Discontinued ANES oxyCODONE 5 mg, 5 mL, Route: PO, Drug form: LIQ, Q4H, Dosing Weight 70.455, kg, PRN Pain S core 7-10, Start date: 08/30/17 7:41:00 CDT, Duration: 12 hr, Stop date: 8 19:40:00 CDT Notes: (Same as: 'Roxicodone) Start Date: 08/30/17 Stop Date: 08/30/17 Status: Discontinued ANES oxyCODONE 5 mg, 1 tab, Route: PO, Drug form: TAB, Q4H, Dosing Weight 70.455, kg, PRN Pain Score 4-6, Start date: 08/30/17 7:41:00 CDT, Duration: 12 hr, Stop date: 8 19:40:00 CDT Notes: (Same as: Roxicodone) Start Date: 08/30/17 Stop Date: 08/30/17 Status: Discontinued Bentyl 20 mg, 1 tab, Route: PO, Drug form: TAB, ONCE, Dosing Weight 70.455, kg, Start d ate: 08/30/17 1:58:00 CDT, Stop date: 08/30/17 1:58:00 CDT Notes: (Same as: Bentyl) Start Date: 08/30/17 Stop Date: 08/30/17 Status: Discontinued calcium gluconate 2 gm, 100 mL, Route: IVPB, Drug form: INJ, PRN, Dosing Weight 70.455, kg, PRN Ab normal Lab Result, For NON-ICU Patients Only., Start date: 08/31/17 6:30:00 CDT, Duration: 30 day, Stop date: 09/30/17 6:29:00 CDT Notes: WASTE: F/P - Sink; E - Municipal Trash Bin Start Date: 08/31/17 Stop Date: 09/04/17 Status: Discontinued calcium gluconate + Sodium Chloride 0.9% IV 150 mL 3 gm, 30 mL, Route: IVPB, PRN, Dosing Weight 70.455, kg, PRN Abnormal Lab Result , For NON-ICU Patients Only., Start date: 08/31/17 6:30:00 CDT, Duration: 30 day , Stop date: 09/30/17 6:29:00 CDT Notes: WASTE: F/P - Sink; E - Municipal Trash Bin Start Date: 08/31/17 Stop Date: 09/04/17 Status: Discontinued Cipro 500 mg, 1 tab, Route: PO, Drug form: TAB, [id number], Dosing Weight 80.591, kg, Sta rt date: 09/04/17 16:00:00 CDT, Duration: 50 day, Stop date: 10/24/17 4:00:00 CD T, ABX Indication: Fever of Unknown Source 0-60 days of age Notes: May interfere w/enteral feedings - Take 1 hr before or 2 hrs after anta cids, dairy pdt & minerals. On empty stomach. Start Date: 09/04/17 Stop Date: 09/04/17 Status: Discontinued cyanocobalamin 1,000 microgram, shot twice a month, 0 Refill(s) Start Date: 08/30/17 Status: Ordered D5LR + KCL 20mEq/L 1000ml (Premix) 1,000 mL 1,000 mL, Rate: 150 ml/hr, Infuse over: 6.7 hr, Route: IV, Dosing Weight 70.455 kg, Total Volume: 1,000, Start date: 08/30/17 7:54:00 CDT, Stop date: 09/29/17 7 :54:00 CDT, 1.87, m2 Notes: PREMIX IV - Do Not AlterWASTE: F/P - Sink; E - Municipal Trash Bin Start Date: 08/30/17 Stop Date: 08/31/17 Status: Discontinued D5W 1/2NS + KCL 20mEq/L 1000ml (Premix) 1,000 mL 1,000 mL, Rate: 250 ml/hr, Infuse over: 4 hr, Route: IV, Dosing Weight 70.455 kg , Total Volume: 1,000, Start date: 08/31/17 8:19:00 CDT, Stop date: 09/30/17 8:1 9:00 CDT, 1.87, m2 Notes: PREMIX IV - Do Not Alter Start Date: 08/31/17 Stop Date: 09/02/17 Status: Discontinued dextromethorphan-guaiFENesin 10 mg-100 mg/5 mL oral liquid 10 ml, Route: PO, Drug Form: LIQ, Dosing Weight 80.591, kg, Q4H, PRN Cough, Star t date: 09/02/17 19:56:00 CDT, Duration: 30 day, Stop date: 10/02/17 19:55:00 CD T Notes: (dextromethorphan-guaifenesin 10-100/5 ml LIQ) (Same as: Robitussin-DM) Start Date: 09/02/17 Stop Date: 09/04/17 Status: Discontinued Dilaudid 1 mg, 1 mL, Route: IV, Drug form: SOLN, Q3H, Dosing Weight 70.455, kg, PRN Pain Score 7-10, Start date: 08/30/17 7:54:00 CDT, Duration: 30 day, Stop date: 09/29 7:53:00 CDT Notes: (Same as: Dilaudid) Start Date: 08/30/17 Stop Date: 08/30/17 Status: Discontinued doxepin 50 mg, PO, Bedtime, PRN Insomnia, 0 Refill(s) Start Date: 08/30/17 Status: Ordered Dyazide 1 cap, PO, Daily, 37.5-25 mg capsule, 0 Refill(s) Start Date: 08/30/17 Status: Ordered fentaNYL 50 microgram, 1 mL, Route: IVP, Drug form: INJ, ONCE, Dosing Weight 70.455, kg, Priority: STAT, Start date: 08/30/17 0:03:00 CDT, Stop date: 08/30/17 0:03:00 CD T Notes: (Same as: Sublimaze) Preservative free. Start Date: 08/30/17 Stop Date: 08/30/17 Status: Completed fentaNYL 50 microgram, 1 mL, Route: IVP, Drug form: INJ, ONCE, Dosing Weight 70.455, kg, Priority: STAT, Start date: 08/30/17 0:37:00 CDT, Stop date: 08/30/17 0:37:00 CD T Notes: (Same as: Sublimaze) Preservative free. Start Date: 08/30/17 Stop Date: 08/30/17 Status: Completed fentaNYL 25 microgram, Q72H, PATCH, 0 Refill(s) Start Date: 08/30/17 Status: Ordered fentaNYL 50 microgram, 1 mL, Route: IVP, Drug form: INJ, ONCE, Dosing Weight 70.455, kg, Priority: STAT, Start date: 08/30/17 3:23:00 CDT, Stop date: 08/30/17 3:23:00 CD T Notes: (Same as: Sublimaze) Preservative free. Start Date: 08/30/17 Stop Date: 08/30/17 Status: Completed fentaNYL 50 microgram, 1 mL, Route: IVP, Drug form: INJ, ONCE, Dosing Weight 70.455, kg, Priority: STAT, Start date: 08/30/17 2:42:00 CDT, Stop date: 08/30/17 2:42:00 CD T Notes: (Same as: Sublimaze) Preservative free. Start Date: 08/30/17 Stop Date: 08/30/17 Status: Completed fentaNYL (ANES) Route: IV, Drug form: INJ, ONCE, Stop date: 08/30/17 7:35:00 CDT Start Date: 08/30/17 Stop Date: 08/30/17 Status: Completed fentaNYL (ANES) Route: IV, Drug form: INJ, ONCE, Stop date: 08/30/17 6:45:00 CDT Start Date: 08/30/17 Stop Date: 08/30/17 Status: Completed Flagyl 500 mg, 100 mL, Route: IVPB, Drug form: INJ, ONCE, Dosing Weight 70.455, kg, Madeleine ority: STAT, Start date: 08/30/17 2:53:00 CDT, Stop date: 08/30/17 2:53:00 CDT, ABX Indication: Intra-abdominal Infection Notes: (Same as: Flagyl) Avoid alcohol. Start Date: 08/30/17 Stop Date: 08/30/17 Status: Completed Flagyl 500 mg, 1 tab, Route: PO, Drug form: TAB, ABXQ8H, Dosing Weight 80.591, kg, Star t date: 09/04/17 16:00:00 CDT, Duration: 50 day, Stop date: 10/24/17 8:00:00 CDT , ABX Indication: Genital Tract Infection Notes: (Same as: Flagyl) Take with food/ avoid alcohol Start Date: 09/04/17 Stop Date: 09/04/17 Status: Discontinued Hurricaine 20% mucous membrane spray 1 spray, Route: TOP, ONCE, Drug form: SPRY, Start date: 08/30/17 2:54:00 CDT, St op date: 08/30/17 2:54:00 CDT Notes: (Same as: Hurricaine One) Start Date: 08/30/17 Stop Date: 08/31/17 Status: Completed ketOROLAC 15 mg/mL injectable solution 15 mg, 1 mL, Route: IVP, Drug form: INJ, Q6H, Dosing Weight 70.455, kg, PRN Pain Score 4-6, Start date: 08/30/17 8:57:00 CDT, Duration: 4 day, Stop date: 8:56:00 CDT Notes: (Same as:Toradol) IV bolus must be given >15 seconds. Give IM administration slowly and deeply into the muscle. Not for use > 4 days. Start Date: 08/30/17 Stop Date: 09/03/17 Status: Completed ketOROLAC 30 mg/mL injectable solution 30 mg, 1 mL, Route: IVP, Drug form: INJ, ONCE, Dosing Weight 70.455, kg, PRN Doroteo n 1-3/Temp > 99.5 F, Priority: STAT, Start date: 08/30/17 8:57:00 CDT Notes: (Same as:Toradol) IV bolus must be given >15 seconds. Give IM administration slowly and deeply into the muscle.Not for use > 4 days Start Date: 08/30/17 Stop Date: 08/30/17 Status: Completed Lactated Ringers Injection IV (ANES) 1000 mL Route: IV, Total Volume: 1,000, Start date: 08/30/17 5:35:00 CDT, Stop date: 6:35:00 CDT Start Date: 08/30/17 Stop Date: 08/30/17 Status: Completed lidocaine (ANES) Route: IV, Drug form: INJ, ONCE, Stop date: 08/30/17 6:40:00 CDT Start Date: 08/30/17 Stop Date: 08/30/17 Status: Completed Lidocaine Viscous 2% mucous membrane solution 5 mL, Route: TOP, ONCE, Drug form: SOLN, Start date: 08/30/17 2:53:00 CDT, Stop date: 08/30/17 2:53:00 CDT Notes: (Same as: Xylocaine) Start Date: 08/30/17 Stop Date: 09/01/17 Status: Completed Lyrica 100 mg, 1 cap, Route: PO, Drug form: CAP, TID, Dosing Weight 70.455, kg, Start d ate: 08/30/17 15:00:00 CDT, Duration: 30 day, Stop date: 09/29/17 9:00:00 CDT Notes: (Same as: Lyrica) Start Date: 08/30/17 Stop Date: 09/04/17 Status: Discontinued Lyrica 100 mg, PO, TID, 0 Refill(s) Start Date: 08/30/17 Status: Ordered magnesium oxide 800 mg, 2 tab, Route: PO, Drug form: TAB, PRN, Dosing Weight 70.455, kg, PRN Abn ormal Lab Result, For NON-ICU Patients Only., Start date: 08/31/17 6:30:00 CDT, Duration: 30 day, Stop date: 09/30/17 6:29:00 CDT Notes: (Same as: Mag-Ox 400)Magnesium oxide 324ff=250vm elemental magnesiumDose= ____mg magnesium oxide (___mg elemental magnesium) Start Date: 08/31/17 Stop Date: 09/04/17 Status: Discontinued magnesium sulfate 1 gm, 100 mL, Route: IVPB, Drug form: INJ, PRN, Dosing Weight 70.455, kg, PRN Ab normal Lab Result, For NON-ICU Patients Only., Start date: 08/31/17 6:30:00 CDT, Duration: 30 day, Stop date: 09/30/17 6:29:00 CDT Notes: WASTE: F/P - Sink; E - Municipal Trash Bin Start Date: 08/31/17 Stop Date: 09/04/17 Status: Discontinued magnesium sulfate 2 gm, 50 mL, Route: IVPB, Drug form: INJ, PRN, Dosing Weight 70.455, kg, PRN Abn ormal Lab Result, For NON-ICU Patients Only., Start date: 08/31/17 6:30:00 CDT, Duration: 30 day, Stop date: 09/30/17 6:29:00 CDT Notes: WASTE: F/P - Sink; E - Municipal Trash Bin Start Date: 08/31/17 Stop Date: 09/04/17 Status: Discontinued Maxalt 10 mg, PO, BID, PRN Headache 7-10, 0 Refill(s) Start Date: 08/30/17 Status: Ordered Maxalt 10 mg, Route: PO, Drug form: TAB, BID, Dosing Weight 80.591, kg, PRN Headache 6- 10, Start date: 09/02/17 10:29:00 CDT, Duration: 30 day, Stop date: 10/02/17 10: 28:00 CDT Start Date: 09/02/17 Stop Date: 09/02/17 Status: Deleted morphine Sulfate 2 mg, 1 mL, Route: IVP, Drug form: SOLN, Q4H, Dosing Weight 70.455, kg, PRN Pain Score 7-10, Start date: 08/30/17 3:45:00 CDT, Duration: 30 day, Stop date: 09/12 12/30 3:44:00 CDT Start Date: 08/30/17 Stop Date: 08/30/17 Status: Discontinued morphine Sulfate 2 mg, 1 mL, Route: IVP, Drug form: SOLN, Q4H, Dosing Weight 70.455, kg, PRN Pain Score 7-10, Start date: 08/31/17 6:29:00 CDT, Duration: 30 day, Stop date: 09/12 01/30 6:28:00 CDT Start Date: 08/31/17 Stop Date: 09/04/17 Status: Discontinued normal saline 0.9% IV 1,000 mL 1,000 mL, Rate: 100 ml/hr, Infuse over: 10 hr, Route: IV, Dosing Weight 80.591 k g, Total Volume: 1,000, Start date: 09/02/17 9:30:00 CDT, Duration: 30 day, Stop date: 10/02/17 9:29:00 CDT, 2.01, m2 Start Date: 09/02/17 Stop Date: 09/04/17 Status: Discontinued NS (Bolus) IV 1,000 mL, 1,000 ml/hr, Infuse Over: 1 hr, Route: IV, 1,000, Drug form: INJ, ONCE , Priority: STAT, Dosing Weight 70.455 kg, Start date: 08/30/17 0:03:00 CDT, Sto p date: 08/30/17 0:03:00 CDT Start Date: 08/30/17 Stop Date: 08/30/17 Status: Completed NS (Bolus) IV 1,000 mL, 1,000 ml/hr, Infuse Over: 1 hr, Route: IV, 1,000, Drug form: INJ, ONCE , Priority: STAT, Dosing Weight 70.455 kg, Start date: 08/30/17 2:53:00 CDT, Sto p date: 08/30/17 2:53:00 CDT Start Date: 08/30/17 Stop Date: 08/30/17 Status: Completed Ofirmev 1,000 mg, Route: IV, Drug form: INJ, ONCE, Dosing Weight 70.455, kg, PRN Pain Sc ore 1-3, for > or=50 kg, Start date: 08/30/17 8:02:00 CDT Start Date: 08/30/17 Stop Date: 08/30/17 Status: Completed Omnipaque 240mg/ml ORAL Solution 50 mL, Route: PO, Drug Form: SOLN, Dosing Weight 70.455, kg, ONCE, Start date: 0 08/30/17 0:02:00 CDT, Stop date: 08/30/17 0:02:00 CDT Notes: (Same as:Omnipaque 240)12,000mg/50mlWASTE: F/P - Black; E - Municipal Tra sh Bin Start Date: 08/30/17 Stop Date: 08/30/17 Status: Completed Omnipaque 300 injectable solution 100 mL, Route: IVP, Dosing Weight 70.455, kg, ONCALL, GFR > 45 mL/min, STAT, Start date: 08/30/17 2:12:00 CDT, Duration: 1 doses or times Start Date: 08/30/17 Stop Date: 08/30/17 Status: Completed pantoprazole 80 mg + Sodium Chloride 0.9% IV 100 mL 100 mL, Rate: 10 ml/hr, Infuse over: 10 hr, Route: IVPB, Dosing Weight 70.455 kg , Total Volume: 100, Infuse at 8 mg / hr for 72 hours for GI bleeding, Start cathy e: 08/30/17 7:54:00 CDT, Duration: 72 hr, Stop date: 09/02/17 7:53:00 CDT, 1.87, m2 Start Date: 08/30/17 Stop Date: 09/02/17 Status: Completed Pepcid 20 mg, 2 mL, Route: IV, Drug form: INJ, ONCE, Dosing Weight 70.455, kg, Start da te: 08/30/17 1:59:00 CDT, Stop date: 08/30/17 1:59:00 CDT Notes: (Same as: Pepcid)Can be dilute in 5-10cc NS IVP: Slow IV push over at le ast 2 minutes. Start Date: 08/30/17 Stop Date: 08/30/17 Status: Completed Phenergan 12.5 mg, Route: IVPB, Q4H, Dosing Weight 70.455, kg, PRN Nausea & Vomiting, Start date: 08/30/17 12:30:00 CDT, Duration: 30 day, Stop date: 09/29/17 12:29:00 CDT Start Date: 08/30/17 Stop Date: 08/30/17 Status: Discontinued Phenergan 12.5 mg, 50 mL, Route: IVPB, Drug form: SOLN, Q4H, Dosing Weight 70.455, kg, PRN as needed for nausea/vomiting, Start date: 08/30/17 3:46:00 CDT, Duration: 30 d ay, Stop date: 09/29/17 3:45:00 CDT Start Date: 08/30/17 Stop Date: 09/04/17 Status: Discontinued Phenergan 6.25 mg, 50 mL, Route: IVPB, Drug form: SOLN, Q4H, Dosing Weight 70.455, kg, PRN Nausea & Vomiting, Start date: 08/30/17 19:32:00 CDT, Stop date: 08/31/17 5:45:00 CDT Start Date: 08/30/17 Stop Date: 08/31/17 Status: Completed potassium chloride 20 mEq, 1 tab, Route: PO, Drug form: ERTAB, PRN, Dosing Weight 70.455, kg, PRN A bnormal Lab Result, For NON-ICU Patients Only, Start date: 08/31/17 6:30:00 CDT, Duration: 30 day, Stop date: 09/30/17 6:29:00 CDT Notes: (Same as: K-Dur 20)"Do Not Crush"For patients unable to swallow tablet, d issolve in one half glass of water. Allow about 2 minutes for the tablets to dis integrate. Stir before giving to prepare slurry and administer.Please exclude Pa tients with feeding tube less than 14 [place]an (Dobhoff, J-tube etc) and pediat juan pablo and patients. With food and full glass of water Start Date: 08/31/17 Stop Date: 09/04/17 Status: Discontinued potassium chloride 20 mEq, 1 pkt, Route: NJ, Drug form: PDR/REC, PRN, Dosing Weight 70.455, kg, PRN Abnormal Lab Result, For NON-ICU Patients Only, Start date: 08/31/17 6:30:00 CD T, Duration: 30 day, Stop date: 09/30/17 6:29:00 CDT Notes: (Same as: K-Tiana) With food and full glass of water Start Date: 08/31/17 Stop Date: 09/04/17 Status: Discontinued potassium chloride 10 mEq, 100 mL, Route: IVPB, Drug form: INJ, PRN, Dosing Weight 70.455, kg, PRN Abnormal Lab Result, For NON-ICU Patients Only, Start date: 08/31/17 6:30:00 CDT , Duration: 30 day, Stop date: 09/30/17 6:29:00 CDT Notes: Infuse at a rate of 10 mEq/hr.(Same as: KCL) Start Date: 08/31/17 Stop Date: 09/04/17 Status: Discontinued potassium phosphate + Sodium Chloride 0.9% IV 250 mL 30 mmol, 10 mL, Route: IVPB, PRN, Dosing Weight 70.455, kg, PRN Abnormal Lab Res ult, For NON-ICU Patients Only., Start date: 08/31/17 6:30:00 CDT, Duration: 30 day, Stop date: 09/30/17 6:29:00 CDT Notes: (Same as: K Phosphate.) 1 mMol phoshate has 1.47 mEq potassium Infuse o rubio 4 hours Start Date: 08/31/17 Stop Date: 09/04/17 Status: Discontinued potassium phosphate + Sodium Chloride 0.9% IV 250 mL 15 mmol, 5 mL, Route: IVPB, PRN, Dosing Weight 70.455, kg, PRN Abnormal Lab Resu lt, For NON-ICU Patients Only., Start date: 08/31/17 6:30:00 CDT, Duration: 30 d ay, Stop date: 09/30/17 6:29:00 CDT Notes: (Same as: K Phosphate.) 1 mMol phoshate has 1.47 mEq potassium Infuse o rubio 4 hours Start Date: 08/31/17 Stop Date: 09/04/17 Status: Discontinued potassium phosphate-sodium phosphate 250 mg-280 mg-160 mg oral powder for recons titution 2 pkt, Route: PO, Drug Form: PDR/REC, Dosing Weight 70.455, kg, PRN, PRN Abnorma l Lab Result, For NON-ICU Patients Only, Start date: 08/31/17 6:30:00 CDT, Durat ion: 30 day, Stop date: 09/30/17 6:29:00 CDT Notes: (Same as: Phos-NaK) Each 1.5 gm pkt has 250mg phosphorous. Mix w/2.5oz w ater and stir. Start Date: 08/31/17 Stop Date: 09/04/17 Status: Discontinued promethazine (ANES) Route: IV, Drug form: INJ, ONCE, Stop date: 08/30/17 7:53:00 CDT Start Date: 08/30/17 Stop Date: 08/30/17 Status: Completed propofol (ANES) Route: IV, Drug form: INJ, ONCE, Stop date: 08/30/17 6:40:00 CDT Start Date: 08/30/17 Stop Date: 08/30/17 Status: Completed Protonix 40 mg, Route: IVP, Drug form: INJ, Daily, Dosing Weight 70.455, kg, Start date: 08/30/17 9:00:00 CDT, Stop date: 08/30/17 13:07:00 CDT Notes: For IV push reconstitute with 10 ml 0.9% sodium chloride and push over 2 minutes. (Same as: Protonix) Start Date: 08/30/17 Stop Date: 08/30/17 Status: Completed Protonix 40 mg, Route: IVP, ONCE, Dosing Weight 70.455, kg, Priority: STAT, Start date: 0 08/30/17 2:49:00 CDT, Stop date: 08/30/17 2:49:00 CDT Start Date: 08/30/17 Stop Date: 08/30/17 Status: Discontinued Rizatriptan Tablet 10 mg Rizatriptan Tablet 10 mg, 10 mg, 1 tab, Drug form: MISC, Route: PO, BID, PRN Hea dache 6-10, 09/02/17 11:27:00 CDT, Stop date: 10/02/17 11:26:00 CDT Start Date: 09/02/17 Stop Date: 09/04/17 Status: Discontinued rocuronium (ANES) Route: IV, Drug form: INJ, ONCE, Stop date: 08/30/17 6:30:00 CDT Start Date: 08/30/17 Stop Date: 08/30/17 Status: Completed Saline Flush 0.9% 10 ml, Route: IVP, Drug Form: INJ, Dosing Weight 70.455, kg, PRN, PRN Line Flush , Start date: 08/30/17 3:45:00 CDT, Duration: 30 day, Stop date: 09/29/17 3:44:0 0 CDT Notes: (Same as: BD Posiflush) Start Date: 08/30/17 Stop Date: 09/04/17 Status: Discontinued Saline Flush 0.9% 10 mL, Route: IVP, Drug Form: INJ, Dosing Weight 92.727, kg, PRN, PRN Line Flush , Start date: 08/29/17 20:55:00 CDT, Duration: 30 day, Stop date: 09/28/17 20:54 :00 CDT Notes: (Same as: BD Posiflush) Start Date: 08/29/17 Stop Date: 09/04/17 Status: Discontinued Sodium Chloride 0.9% (Bolus) IV 1,000 mL, 1,000 ml/hr, Infuse Over: 1 hr, Route: IV, 1,000, Drug form: INJ, ONCE , Priority: STAT, Dosing Weight 70.455 kg, Start date: 08/31/17 9:55:00 CDT, Sto p date: 08/31/17 9:55:00 CDT Start Date: 08/31/17 Stop Date: 08/31/17 Status: Completed Sodium Chloride 0.9% (Bolus) IV 1,000 mL, 1,000 ml/hr, Infuse Over: 1 hr, Route: IV, 1,000, Drug form: INJ, ONCE , Priority: STAT, Dosing Weight 70.455 kg, Start date: 08/30/17 12:30:00 CDT, St op date: 08/30/17 12:30:00 CDT Start Date: 08/30/17 Stop Date: 08/30/17 Status: Completed Sodium Chloride 0.9% (Bolus) IV 1,000 mL, 1,000 ml/hr, Infuse Over: 1 hr, Route: IV, 1,000, Drug form: INJ, ONCE , Priority: STAT, Dosing Weight 70.455 kg, Start date: 08/31/17 15:49:00 CDT, St op date: 08/31/17 15:49:00 CDT Start Date: 08/31/17 Stop Date: 08/31/17 Status: Completed Sodium Chloride 0.9% (Bolus) IV 1,000 mL, 1,000 ml/hr, Infuse Over: 1 hr, Route: IV, 1,000, Drug form: INJ, ONCE , Priority: STAT, Dosing Weight 80.591 kg, Start date: 09/01/17 8:13:00 CDT, Sto p date: 09/01/17 8:13:00 CDT Start Date: 09/01/17 Stop Date: 09/01/17 Status: Completed Sodium Chloride 0.9% (Bolus) IV 1,000 mL, 1,000 ml/hr, Infuse Over: 1 hr, Route: IV, 1,000, Drug form: INJ, ONCE , Priority: STAT, Dosing Weight 70.455 kg, Start date: 08/30/17 11:19:00 CDT, St op date: 08/30/17 11:19:00 CDT Start Date: 08/30/17 Stop Date: 08/30/17 Status: Completed Sodium Chloride 0.9% (Bolus) IV 1,000 mL, 1,000 ml/hr, Infuse Over: 1 hr, Route: IV, 1,000, Drug form: INJ, ONCE , Priority: STAT, Dosing Weight 70.455 kg, Start date: 08/30/17 14:56:00 CDT, St op date: 08/30/17 14:56:00 CDT Start Date: 08/30/17 Stop Date: 08/30/17 Status: Completed Sodium Chloride 0.9% IV (ANES) 1000 mL Route: IV, Total Volume: 1,000, Start date: 08/30/17 5:35:00 CDT, Stop date: 6:35:00 CDT Start Date: 08/30/17 Stop Date: 08/30/17 Status: Completed Sodium Chloride 0.9% IV 1,000 mL 1,000 mL, Rate: 125 ml/hr, Infuse over: 8 hr, Route: IV, Dosing Weight 70.455 kg , Total Volume: 1,000, Start date: 08/30/17 3:45:00 CDT, Duration: 30 day, Stop date: 09/29/17 3:44:00 CDT, 1.87, m2 Start Date: 08/30/17 Stop Date: 08/30/17 Status: Discontinued sodium phosphate + Sodium Chloride 0.9% IV 250 mL 30 mmol, 10 mL, Route: IVPB, PRN, Dosing Weight 70.455, kg, PRN Abnormal Lab Res ult, For NON-ICU Patients Only., Start date: 08/31/17 6:30:00 CDT, Duration: 30 day, Stop date: 09/30/17 6:29:00 CDT Start Date: 08/31/17 Stop Date: 09/04/17 Status: Discontinued sodium phosphate + Sodium Chloride 0.9% IV 250 mL 15 mmol, 5 mL, Route: IVPB, PRN, Dosing Weight 70.455, kg, PRN Abnormal Lab Resu lt, For NON-ICU Patients Only., Start date: 08/31/17 6:30:00 CDT, Duration: 30 d ay, Stop date: 09/30/17 6:29:00 CDT Start Date: 08/31/17 Stop Date: 09/04/17 Status: Discontinued succinylcholine (ANES) Route: IV, Drug form: INJ, ONCE, Stop date: 08/30/17 6:40:00 CDT Start Date: 08/30/17 Stop Date: 08/30/17 Status: Completed sugammadex (ANES) Route: IV, Drug form: SOLN, ONCE, Stop date: 08/30/17 7:35:00 CDT Start Date: 08/30/17 Stop Date: 08/30/17 Status: Completed SUMAtriptan 6 mg, 0.5 mL, Route: SUB-Q, Drug form: INJ, ONCE, Dosing Weight 80.591, kg, PRN Headache 6-10, Start date: 09/02/17 19:56:00 CDT Notes: For SUBCUTANEOUS use only Start Date: 09/02/17 Stop Date: 09/03/17 Status: Completed tizanidine 4 mg, 1 tab, Route: PO, Drug form: TAB, Q6H, Dosing Weight 70.455, kg, Start cathy e: 08/30/17 15:00:00 CDT, Duration: 30 day, Stop date: 09/29/17 12:00:00 CDT Notes: (Same As: Zanaflex) Start Date: 08/30/17 Stop Date: 09/04/17 Status: Discontinued tizanidine 4 mg, PO, Q6H, 0 Refill(s) Start Date: 08/30/17 Stop Date: 09/04/17 Status: Discontinued tizanidine 4 mg oral tablet 4 mg=1 tab, PO, Q6H, PRN as needed for muscle spasm, 0 Refill(s) Start Date: 09/04/17 Status: Ordered Tylenol 650 mg, 1 supp, Route: NC, Drug form: SUPP, Q6H, Dosing Weight 70.455, kg, PRN F or Temp > 100.4 F, Start date: 08/30/17 12:34:00 CDT, Duration: 30 day, Stop date: 09/29/17 12:33:00 CDT Notes: Max tjodgaxnyvdgw=2340 mg/day (4 gm/day). (Same as: Tylenol) Start Date: 08/30/17 Stop Date: 09/04/17 Status: Discontinued vancomycin 1.5 gm, 250 mL, Route: IVPB, Drug form: INJ, ONCE, Start date: 08/30/17 16:00:00 CDT, Stop date: 08/30/17 16:00:00 CDT, ABX Indication: Skin/Soft Tissue Infecti on Notes: TIME CRITICAL MEDICATIONSame as: Vancocin-NS (premixed) Start Date: 08/30/17 Stop Date: 08/30/17 Status: Completed vancomycin 1,000 mg, Route: IVPB, Drug form: INJ, [id number], Dosing Weight 70.455, kg, Start date: 08/30/17 15:00:00 CDT, Duration: 7 day, Stop date: 09/06/17 3:00:00 CDT, A BX Indication: Skin/Soft Tissue Infection Start Date: 08/30/17 Stop Date: 08/30/17 Status: Canceled vancomycin 1,000 mg, Route: IVPB, Drug form: INJ, [id number], Dosing Weight 70.455, kg, Priori ty: STAT, Start date: 08/30/17 14:55:00 CDT, Duration: 7 day, Stop date: 8 2:55:00 CDT, ABX Indication: Skin/Soft Tissue Infection Start Date: 08/30/17 Stop Date: 08/30/17 Status: Deleted vancomycin + Sodium Chloride 0.9% IV 250 mL 1,000 mg, Route: IVPB, [id number], Start date: 08/31/17 4:00:00 CDT, Duration: 7 da y, Stop date: 09/06/17 16:00:00 CDT, ABX Indication: Skin/Soft Tissue Infection Notes: TIME CRITICAL MEDICATION(Same As: Vancocin) Start Date: 08/31/17 Stop Date: 08/31/17 Status: Discontinued Vancomycin trough due Vancomycin trough due, vanc trough due, Drug form: MISC, Route: MISC, ONCE, 08/14 15:00:00 CDT, Stop date: 09/01/17 15:00:00 CDT Start Date: 09/01/17 Stop Date: 08/31/17 Status: Discontinued Zofran 4 mg, 1 tab, Route: PO, Drug form: TABDIS, Q8H, Dosing Weight 70.455, kg, PRN Na usea, Start date: 08/30/17 7:54:00 CDT, Duration: 30 day, Stop date: 09/29/17 7: 53:00 CDT Notes: (Same as: Zofran ODT) Start Date: 08/30/17 Stop Date: 09/04/17 Status: Discontinued Zofran ODT 4 mg, 1 tab, Route: PO, Drug form: TABDIS, ONCE, Dosing Weight 70.455, kg, Prior ity: STAT, Start date: 08/30/17 0:03:00 CDT, Stop date: 08/30/17 0:03:00 CDT Notes: (Same as: Zofran ODT) Start Date: 08/30/17 Stop Date: 08/30/17 Status: Completed Zosyn + Sodium Chloride 0.9% IV 100 mL 3.375 gm, Route: IVPB, [id number], Dosing Weight 70.455, kg, Start date: 08/30/17 12 :00:00 CDT, Duration: 30 day, Stop date: 09/29/17 4:00:00 CDT, ABX Indication: I ntra-abdominal Infection Notes: (Same as: Zosyn)Dosing based on Piperacillin component MEDICATION WA TIFFANIE Product Size: 3375 mgProduct Wasted: ___ mg Start Date: 08/30/17 Stop Date: 09/04/17 Status: Discontinued Zosyn + Sodium Chloride 0.9% IV 100 mL 3.375 gm, Route: IVPB, ONCE, Dosing Weight 70.455, kg, Priority: STAT, Start cathy e: 08/30/17 2:52:00 CDT, Stop date: 08/30/17 2:52:00 CDT, ABX Indication: Intra- abdominal Infection Notes: (Same as: Zosyn)Dosing based on Piperacillin component MEDICATION WA TIFFANIE Product Size: 3375 mgProduct Wasted: ___ mg Start Date: 08/30/17 Stop Date: 08/30/17 Status: Completed Results BLOOD BANK RESULTS 1 2 3 Most recent to oldest [Reference Range]: O POS *Unknown* (08/30/17 5:10 AM) ABO/Rh Negative (08/30/17 5:10 AM) Antibody Scrn Product available 1 (09/01/17 6:55 AM) RBC product 1Result Comment: 09/01/2017 07:36 MABUNING Blood available, notified SAMY at 09/01/2017 07:36 by MB. ELECTROLYTES 1 2 3 Most recent to oldest [Reference Range]: 141 mEq/L (09/04/17 4:31 AM) 141 mEq/L (09/03/17 4:27 AM) 140 mEq/L (09/02/17 4:47 AM) Sodium Lvl [135-145 mEq/L] 4.1 mEq/L (09/04/17 4:31 AM) 4.6 mEq/L (09/03/17 4:27 AM) 5.2 mEq/L *HI* (09/02/17 4:47 AM) Potassium Lvl [3.5-5.1 mEq/L] 114 mEq/L *HI* (09/04/17 4:31 AM) 116 mEq/L *HI* (09/03/17 4:27 AM) 115 mEq/L *HI* (09/02/17 4:47 AM) Chloride Lvl [95-109 mEq/L] 18 mEq/L *LOW* (09/04/17 4:31 AM) 18 mEq/L *LOW* (09/03/17 4:27 AM) 18 mEq/L *LOW* (09/02/17 4:47 AM) CO2 [24-32 mEq/L] 13.1 mEq/L (09/04/17 4:31 AM) 11.6 mEq/L (09/03/17 4:27 AM) 12.2 mEq/L (09/02/17 4:47 AM) AGAP [10.0-20.0 mEq/L] CHEM PANEL 1 2 3 Most recent to oldest [Reference Range]: 0.93 mg/dL (09/04/17 4:31 AM) 0.93 mg/dL (09/03/17 4:27 AM) 1.06 mg/dL (09/02/17 4:47 AM) Creatinine Lvl [0.50-1.40 mg/dL] 76 mL/min/1.73m2 1 *NA* (09/04/17 4:31 AM) 76 mL/min/1.73m2 2 *NA* (09/03/17 4:27 AM) 64 mL/min/1.73m2 3 *NA* (09/02/17 4:47 AM) eGFR 8 mg/dL (09/04/17 4:31 AM) 12 mg/dL (09/03/17 4:27 AM) 21 mg/dL (09/02/17 4:47 AM) BUN [7-22 mg/dL] 24 (08/30/17 11:35 AM) 14 (08/29/17 9:43 PM) B/C Ratio [6-25] 70 mg/dL (09/04/17 4:31 AM) 80 mg/dL (09/03/17 4:27 AM) 110 mg/dL *HI* (09/02/17 4:47 AM) Glucose Lvl [70-99 mg/dL] 5.9 g/dL *LOW* (08/30/17 11:35 AM) 8.5 g/dL *HI* (08/29/17 9:43 PM) Total Protein [6.4-8.4 g/dL] 2.6 g/dL *LOW* (08/30/17 11:35 AM) 4.2 g/dL (08/29/17 9:43 PM) Albumin Lvl [3.5-5.0 g/dL] 3.3 g/dL (08/30/17 11:35 AM) 4.3 g/dL *HI* (08/29/17 9:43 PM) Globulin [2.7-4.2 g/dL] 0.8 (08/30/17 11:35 AM) 1.0 (08/29/17 9:43 PM) A/G Ratio [0.7-1.6] 8.6 mg/dL (09/04/17 4:31 AM) 7.9 mg/dL *LOW* (09/03/17 4:27 AM) 8.1 mg/dL *LOW* (09/02/17 4:47 AM) Calcium Lvl [8.5-10.5 mg/dL] 4.0 mg/dL (08/31/17 8:22 PM) 4.5 mg/dL (08/31/17 4:30 AM) Phosphorus [2.5-4.5 mg/dL] 2.3 mg/dL (08/31/17 8:22 PM) 1.4 mg/dL *LOW* (08/31/17 4:30 AM) Magnesium Lvl [1.8-2.4 mg/dL] 47 unit/L (08/30/17 11:35 AM) 36 unit/L (08/29/17 9:43 PM) ALT [0-65 unit/L] 86 unit/L *HI* (08/30/17 11:35 AM) 41 unit/L *HI* (08/29/17 9:43 PM) AST [0-37 unit/L] 55 unit/L (08/30/17 11:35 AM) 92 unit/L (08/29/17 9:43 PM) Alk Phos [39-136 unit/L] 0.4 mg/dL (08/30/17 11:35 AM) 0.3 mg/dL (08/29/17 9:43 PM) Bili Total [0.2-1.3 mg/dL] 291 unit/L (08/29/17 9:43 PM) Lipase Lvl [73-393 unit/L] 1.8 mMol/L (08/31/17 11:49 PM) 2.4 mMol/L *HI* (08/31/17 8:22 PM) 2.3 mMol/L *HI* (08/31/17 5:36 PM) Lactic Acid Lvl [0.5-2.2 mMol/L] 53.30 ng/mL 4 *CRIT* (08/31/17 4:00 AM) 20.86 ng/mL 5 *CRIT* (08/30/17 11:35 AM) Procalcitonin Lvl [0.00-0.10 ng/mL] 1Result Comment: The eGFR is calculated using [...] be mul tiplied by the estimated BMI. 2Result Comment: The eGFR is calculated using the [...] be mul tiplied by the estimated BMI. 3Result Comment: The eGFR is calculated using the [...] be mul tiplied by the estimated BMI. 4Result Comment: Critical Result(s) called to Jessica Lamas RN at 08/31/2017 06:22 by SLF. Read back OK. 5Result Comment: Critical Result(s) called to froy graf rn at 08/30/2017 12:47 by . Read back OK. CARDIAC ENZYMES 1 2 3 Most recent to oldest [Reference Range]: <0.02 ng/mL (08/29/17 9:43 PM) Troponin-I [0.00-0.40 ng/mL] SPECIAL CHEMISTRY 1 2 3 Most recent to oldest [Reference Range]: 5.0 % (08/30/17 9:28 AM) Hgb A1C [<=5.6 %] ENDOCRINOLOGY 1 2 3 Most recent to oldest [Reference Range]: Negative *NA* (08/29/17 9:43 PM) S Preg [Negative] URINE AND STOOL 1 2 3 Most recent to oldest [Reference Range]: Marked *ABN* (09/01/17 8:04 AM) Clear (08/30/17 4:25 AM) UA Turbidity [Clear] Yellow *NA* (09/01/17 8:04 AM) Yellow *NA* (08/30/17 4:25 AM) UA Color [Yellow] 5.0 (09/01/17 8:04 AM) UA pH [5.0-8.0] 5.0 (08/30/17 4:25 AM) UA pH [5.0-8.0] 1.010 (09/01/17 8:04 AM) <=1.005 *NA* (08/30/17 4:25 AM) UA Spec Grav [<=1.030] Negative mg/dL *NA* (09/01/17 8:04 AM) UA Glucose [Negative mg/dL] Negative (08/30/17 4:25 AM) UA Glucose [Negative] Moderate *ABN* (09/01/17 8:04 AM) Large *ABN* (08/30/17 4:25 AM) UA Blood [Negative] Negative mg/dL *NA* (09/01/17 8:04 AM) UA Ketones [Negative mg/dL] Negative *NA* (08/30/17 4:25 AM) UA Ketones [Negative] Negative mg/dL (09/01/17 8:04 AM) UA Protein [Negative mg/dL] Trace *ABN* (08/30/17 4:25 AM) UA Protein [Negative] <=1.0 mg/dL *NA* (09/01/17 8:04 AM) UA Urobilinogen [0.1-1.0 mg/dL] 0.2 EU/dL (08/30/17 4:25 AM) UA Urobilinogen [0.1-1.0 EU/dL] Negative *NA* (09/01/17 8:04 AM) Negative *NA* (08/30/17 4:25 AM) UA Bili [Negative] Negative (09/01/17 8:04 AM) Negative (08/30/17 4:25 AM) UA Leuk Est [Negative] Negative (09/01/17 8:04 AM) Negative (08/30/17 4:25 AM) UA Nitrite [Negative] 4 /HPF (08/30/17 4:25 AM) UA WBC [0-5 /HPF] 15 /HPF *HI* (08/30/17 4:25 AM) UA RBC [0-2 /HPF] Occasional /HPF *NA* (09/01/17 8:04 AM) Occasional /HPF *NA* (08/30/17 4:25 AM) UA Bacteria [None Seen /HPF] Occasional /LPF *NA* (09/01/17 8:04 AM) Few /LPF *NA* (08/30/17 4:25 AM) UA Sq Epi [Few /LPF] Moderate /HPF *ABN* (09/01/17 8:04 AM) UA Amorph Shirley [None Seen /HPF] Few /LPF *NA* (09/01/17 8:04 AM) Few /LPF *NA* (08/30/17 4:25 AM) UA Mucus [None Seen /LPF] 0-2 /LPF *ABN* (08/30/17 4:25 AM) UA Gran Cast [None Seen /LPF] HEMATOLOGY 1 2 3 Most recent to oldest [Reference Range]: 9.1 K/CMM (09/04/17 4:31 AM) 5.2 K/CMM (09/03/17 4:27 AM) 6.1 K/CMM (09/02/17 4:47 AM) WBC [3.7-10.4 K/CMM] 3.79 M/CMM *LOW* (09/04/17 4:31 AM) 3.21 M/CMM *LOW* (09/03/17 4:27 AM) 3.24 M/CMM *LOW* (09/02/17 4:47 AM) RBC [4.20-5.40 M/CMM] 9.9 g/dL *LOW* (09/04/17 4:31 AM) 8.3 g/dL *LOW* (09/03/17 4:27 AM) 8.6 g/dL *LOW* (09/02/17 4:47 AM) Hgb [12.0-16.0 g/dL] 31.3 % *LOW* (09/04/17 4:31 AM) 26.2 % *LOW* (09/03/17 4:27 AM) 26.8 % *LOW* (09/02/17 4:47 AM) Hct [36.0-48.0 %] 82.5 fL (09/04/17 4:31 AM) 81.5 fL (09/03/17 4:27 AM) 82.8 fL (09/02/17 4:47 AM) MCV [80.0-98.0 fL] 26.0 pg *LOW* (09/04/17 4:31 AM) 26.0 pg *LOW* (09/03/17 4:27 AM) 26.6 pg *LOW* (09/02/17 4:47 AM) MCH [27.0-31.0 pg] 31.5 g/dL *LOW* (09/04/17 4:31 AM) 31.9 g/dL *LOW* (09/03/17 4:27 AM) 32.1 g/dL (09/02/17 4:47 AM) MCHC [32.0-36.0 g/dL] 18.5 % *HI* (09/04/17 4:31 AM) 18.0 % *HI* (09/03/17 4:27 AM) 17.6 % *HI* (09/02/17 4:47 AM) RDW [11.5-14.5 %] 7.6 fL (09/04/17 4:31 AM) 7.4 fL (09/03/17 4:27 AM) 7.7 fL (09/02/17 4:47 AM) MPV [7.4-10.4 fL] 503 K/CMM *HI* (09/04/17 4:31 AM) 359 K/CMM (09/03/17 4:27 AM) 362 K/CMM (09/02/17 4:47 AM) Platelet [133-450 K/CMM] 44.0 % *LOW* (09/04/17 4:31 AM) 75.0 % (09/03/17 4:27 AM) 81.4 % *HI* (09/02/17 4:47 AM) Segs [45.0-75.0 %] 20.0 % *HI* (09/04/17 4:31 AM) 27.0 % *HI* (09/01/17 3:41 AM) 29.0 % *HI* (08/31/17 4:00 AM) Bands [0.0-11.0 %] 13.0 % *LOW* (09/04/17 4:31 AM) 15.0 % *LOW* (09/03/17 4:27 AM) 12.1 % *LOW* (09/02/17 4:47 AM) Lymphocytes [20.0-40.0 %] 0.0 % (09/04/17 4:31 AM) 0.0 % (09/01/17 3:41 AM) 0.0 % (08/31/17 4:00 AM) Atypical Lymphs [<=0.0 %] 13.0 % *HI* (09/04/17 4:31 AM) 8.1 % (09/03/17 4:27 AM) 4.4 % (09/02/17 4:47 AM) Monocytes [2.0-12.0 %] 3.0 % (09/04/17 4:31 AM) 1.7 % (09/03/17 4:27 AM) 1.6 % (09/02/17 4:47 AM) Eosinophils [0.0-4.0 %] 0.2 % (09/03/17 4:27 AM) 0.5 % (09/02/17 4:47 AM) 0.1 % (08/30/17 11:35 AM) Basophils [0.0-1.0 %] 5.0 % *HI* (09/04/17 4:31 AM) 1.0 % (09/01/17 3:41 AM) 2.0 % *HI* (08/31/17 4:00 AM) Metamyelocytes [0.0-1.0 %] 2.0 % *HI* (09/04/17 4:31 AM) Myelocytes [<=0.0 %] 5.8 K/CMM (09/04/17 4:31 AM) 3.9 K/CMM (09/03/17 4:27 AM) 5.0 K/CMM (09/02/17 4:47 AM) Segs-Bands # [1.5-8.1 K/CMM] 1.2 K/CMM (09/04/17 4:31 AM) 0.8 K/CMM *LOW* (09/03/17 4:27 AM) 0.7 K/CMM *LOW* (09/02/17 4:47 AM) Lymphocytes # [1.0-5.5 K/CMM] 1.2 K/CMM *HI* (09/04/17 4:31 AM) 0.4 K/CMM (09/03/17 4:27 AM) 0.3 K/CMM (09/02/17 4:47 AM) Monocytes # [0.0-0.8 K/CMM] 0.3 K/CMM (09/04/17 4:31 AM) 0.1 K/CMM (09/03/17 4:27 AM) 0.1 K/CMM (09/02/17 4:47 AM) Eosinophils # [0.0-0.5 K/CMM] Normal (09/03/17 4:27 AM) Normal (09/02/17 4:47 AM) Normal (08/31/17 4:00 AM) RBC Morph 1+ *ABN* (09/02/17 4:47 AM) Anisocyte [None Seen] Moderate *ABN* (09/01/17 3:41 AM) Moderate *ABN* (08/31/17 4:00 AM) Polychrom [None Seen] 1+ (09/04/17 4:31 AM) 1+ (09/02/17 4:47 AM) 1+ (09/01/17 3:41 AM) Hypochrom [None Seen] Moderate *ABN* (09/01/17 3:41 AM) Dohle Bodies [None Seen] Normal (09/04/17 4:31 AM) Normal (09/03/17 4:27 AM) Normal (09/02/17 4:47 AM) Plt Morph 11.9 seconds *LOW* (08/29/17 9:43 PM) PT [12.0-14.7 seconds] 0.88 (08/29/17 9:43 PM) INR [0.85-1.17] 30.3 seconds (08/29/17 9:43 PM) PTT [22.9-35.8 seconds] Immunizations No data available for this section [...] Reg Smoking Cessation Counseling Yes entered on: 08/30/17 Assessment and Plan Extracted from: Title: Progress Note Complex * Author: Tigre Judge DO Date: 09/04/17 Impression and Plan Colitis ischemic - resolved - no abscess - chaneg to oral 3 more days leukocytosis - resolved diarrhea - ? 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 Extracted from: Title: Hospitalist H&P Author: Cullen Lee MD Date: 08/30/17 Chief complain: Abdominal pain HPI: 42 years old female with history of gastric bypass surgery, fibromyalgia, DJD. Last night after eating she began having sudden onset of severe abdominal pain, diffuse, constant, no exacerbating factors. Associated to nausea. In the ED the patient was found to be tachycardic with leukocytosis. A CT abdomen showed signs of bowel obstruction with bowel ischemia. Surgeon has being contacted. Past medical history: Fibromyalgia. DJD Past surgical history: Tonsillectomy: 1978 Epidural steroid injection Gastric bypass operation Cholecystectomy Family history: Reviewed. No h/o CAD. Social history: 1ppd for 25 years. No alcohol or illicit drug abuse. Allergies: NKDA, NKFA *Medications: - Please see completed medication reconciliation list. *Review of systems: Except for what was mention in the H&P, rest of all review of systems are negative. *PHYSICAL EXAM: VitalsTmp(F)[id number] 08/30 03:[id number]--- 08/29 21:02----[id number]--- 24 Hr Tmax: 100.5F (38.06c) at 08/30 03:20Vital Signs are the last 5 in the past 48 hours. General: patient lying in bed in no distress. HEENT: FELIPE, EOMI. Neck: supple, no jvd. no thyromegaly. Chest: clear breath sounds bilaterally, no wheezing, rales or bronchi. Cardiovascular: tachycardic, regular rhythm. Abdomen: rigid, diffuse tenderness to palpation, rebound tenderness+ Musculoskeletal: no peripheral edema. No joint swelling. PAINT TECHNICIAN: awake and alert, no focal signs. Skin: no rash. [facility] BUN: 10 mg/dL (08/29/17) Hct: 31.1 % Low (08/29/17) Hgb: 9.6 g/dL Low (08/29/17) MCH: 24.6 pg Low (08/29/17) MCHC: 30.8 g/dL Low (08/29/17) MCV: 79.8 fL Low (08/29/17) MPV: 7.6 fL (08/29/17) Platelet: 385 K/CMM (08/29/17) RBC: 3.9 M/CMM Low (08/29/17) RDW: 17.9 % High (08/29/17) WBC: 12.4 K/CMM High (08/29/17) -CT abdomen/pelvis: Small bowel obstruction, as described, with a transition point seen at the central abdomen. Differential considerations include obstruction due to midgut volvulus or internal hernia. There is pneumatosis of the distended small bowel of the lower abdomen, secondary to small bowel ischemia. Mild ascites is also noted. ASSESSMENT/PLAN: 1. Small bowel obstruction with bowel ischemia. patient now tachycardic, febrile. She needs emergent surgery. Surgeon has being consulted. Keep NPO, place NGT, start broad spectrum antibiotics. 2. SIRS with possible early sepsis, as evidenced by fever, tachycardia, leukocytosis. Secondary to bowel ischemia. Start IV zosyn. f/u cultures. 3. Dehydration with hypovolemia. IVFs. 4. Hyperglycemia. Get a1c. 5. Chronic tobacco dependence. Smoking cessation counseling. 6. VTE prophylaxis. SCDs for now. Recommend to start heparin/lovenox after surgery once ok with surgeon.
--- OUTSIDE RECORDS SUMMARY | 2018-02-27 03:09 | XMS REPORT | Clinical Summary ---
Author Author [facility] Address Unknown Phone Unavailable Care Team Providers Care Court Transcriber Name Role Phone PCP Unavailable Allergies No [...] Taken Blood Pressure 94/53 06/14/2017 1:20 PM YARN PACKER Pulse 61 06/14/2017 1:20 PM YARN PACKER Temperature 36.4 C (97.6 F) 06/14/2017 1:20 PM YARN PACKER Respiratory Rate 8 06/14/2017 1:20 PM YARN PACKER Oxygen Saturation 100% 06/14/2017 1:20 PM YARN PACKER Inhaled Oxygen - - Concentration Weight - - Height - - Body Mass Index - - Plan of Treatment Not on file Implants Implanted Type Area Refractory Furnace Designer Device Expiration Model / Identifier Date Serial / Lot Lwire Set Paddle Octrode 60 - Pain N/A: Back ST TESS 09/07/2018 3186 / [id number] Mgmt/Stimu MED:NEUROMODULA [id number] / Implanted: Qty: 1 on 06/14/2017 by Ramón Lynch MD Lwire Set Paddle Octrode 60 - Pain N/A: Back ST TESS 04/03/2019 3186 / [id number] Mgmt/Stimu MED:NEUROMODULA [id number] / Implanted: Qty: 1 on 06/14/2017 by Ramón Lynch MD Stim Neuro [employer] 5 Elite - Pain N/A: Back ST TESS 01/23/2019 3660 / [id number] Mgmt/Stimu MED:NEUROMODULA [id number] / Implanted: Qty: 1 on 06/14/2017 by Ramón Lynch MD [employer] [place] 1192 - [id number] Spine ADV 05/26/2019 1192 / Implanted: Qty: 2 on 06/14/2017 by OBDULIA / Ramón Paulino MD SYS [id number] Procedures Procedure Name Priority Date/Time Associated Diagnosis Comments INSERTION,SPINAL CORD 06/14/2017 Chronic nonmalignant pain NEUROSTIMULATOR 11:15 AM YARN PACKER Case Notes PERMANENT LUMBAR SCS KHOURY PADMINI VILLALTA , [place] after 01/26/2017 Results * FL Watch Repairer in OR 30 minute increments (06/14/2017 11:26 AM) Specimen Performing Laboratory GE RIS Narrative FLUOROSCOPIC UNIT UTILIZED.NO INTERPRETATION REQUESTED. Procedure Note Interface, External Ris In - 06/14/2017 1:53 PM YARN PACKER FLUOROSCOPIC UNIT UTILIZED. NO INTERPRETATION REQUESTED. * Screen, urine (06/14/2017 10:28 AM) Component Value Ref Range Preg Test, Ur Negative Specimen Performing Laboratory Urine [facility] [id number] [place] [address] after 01/26/2017
== END 2018-01-28 14:18 | disposition expired | DRG 871 ==
LOC: ER 10:20 → ERHOLD 12:50 → ICU 16:45
PROVIDERS: ADMIT Internal Medicine; ATTEND Internal Medicine
PROC: 0BH17EZ Insertion of Endotracheal Airway into Trachea, Via Natural or Artificial Opening (ICD-10-PCS; principal; 2018-01-27)
PROC: 5A1935Z Respiratory Ventilation, Less than 24 Consecutive Hours (ICD-10-PCS; 2018-01-27)
PROC: 02HV33Z Insertion of Infusion Device into Superior Vena Cava, Percutaneous Approach (ICD-10-PCS; 2018-01-27)
DX: A41.9 Sepsis, unspecified organism (principal); E43 Unspecified severe protein-calorie malnutrition; J96.00 Acute respiratory failure, unspecified whether with hypoxia or hypercapnia; R65.21 Severe sepsis with septic shock; E87.2 Acidosis; E87.3 Alkalosis; R64 Cachexia; E72.20 Disorder of urea cycle metabolism, unspecified; N39.0 Urinary tract infection, site not specified; K72.90 Hepatic failure, unspecified without coma; Z98.84 Bariatric surgery status; D50.8 Other iron deficiency anemias; Z68.24 Body mass index [BMI] 24.0-24.9, adult; E86.0 Dehydration; R21 Rash and other nonspecific skin eruption; N64.59 Other signs and symptoms in breast; D72.819 Decreased white blood cell count, unspecified; F17.210 Nicotine dependence, cigarettes, uncomplicated; I46.9 Cardiac arrest, cause unspecified; Z96.9 Presence of functional implant, unspecified; M19.90 Unspecified osteoarthritis, unspecified site; G89.29 Other chronic pain
CPT/HCPCS: 31500; 36415; 36569; 36600; 51700; 70450; 71045; 72125; 72170; 74177; 80053; 80061; 80307; 80320; 80329; 81001; 81025; 82140; 82270; 82306; 82533; 82550; 82553; 82607; 82746; 82805; 83605; 83735; 84134; 84443; 84484; 85025; 85610; 85730; 86850; 86900; 86920; 86922; 87040; 87071; 87086; 87186; 87205; 93005; 94002; 96365; 96367; 96376; 99285; J0171; J0330; J0692; J1720; J2370; J3370; J3411; J7030; J7050; J7070; P9047; Q9967